=== PATIENT | male | born 1955 | race Caucasian/White ===

== ENCOUNTER → 2017-02-13 | Outpatient (CLI) | payer OTHER ==
[~2017-02-13] MED LIST: FAMO40TA39 PO; METH4TAB PO; SULF1TAB38 PO
[2017-02-13 20:18] LABS: BASOPHILS % (AUTO) 0 % (0-10); EOSINOPHILS # (AUTO) 0.4 10^3/uL (0.0-0.3); EOSINOPHILS % (AUTO) 3 % (0-10); LYMPHOCYTES % (AUTO) 27 % (12-44); MEAN CORPUSCULAR HEMOGLOBIN 30 PG (25-34); MEAN CORPUSCULAR HGB CONC 34 G/DL (32-36); MEAN CORPUSCULAR VOLUME 87 FL (80-99); MEAN PLATELET VOLUME 10.4 FL (7.4-10.4); MONOCYTES # (AUTO) 0.8 X 10^3 (0.0-1.0); MONOCYTES % (AUTO) 7 % (0-12); NEUTROPHILS # (AUTO) 7.1 X 10^3 (1.8-7.8); NEUTROPHILS % (AUTO) 63 % (42-75); PLATELET COUNT 240 10^3/uL (130-400); RED BLOOD COUNT 5.73 10^6/uL (4.35-5.85); RED CELL DISTRIBUTION WIDTH 13.8 % (10.0-14.5); WHITE BLOOD COUNT 11.2 10^3/uL (4.3-11.0)
[2017-02-13 20:39] LABS: ALANINE AMINOTRANSFERASE 61 U/L (0-55); ALBUMIN 4.1 GM/DL (3.2-4.5); ANION GAP 11 MMOL/L (5-14); ASPARTATE AMINO TRANSFERASE 35 U/L (5-34); BILIRUBIN,TOTAL 0.8 MG/DL (0.1-1.0); BLOOD UREA NITROGEN 13 MG/DL (7-18); BUN/CREATININE RATIO 15; CALCIUM 8.8 MG/DL (8.5-10.1); CARBON DIOXIDE 22 MMOL/L (21-32); CHLORIDE 105 MMOL/L (98-107); CREATININE SERUM 0.87 MG/DL (0.60-1.30); GFR ESTIMATED > 60; GLUCOSE 113 MG/DL (70-105); POTASSIUM 3.8 MMOL/L (3.6-5.0); SODIUM 138 MMOL/L (135-145)
== END ==
LOC: LAB 20:00
PROVIDERS: ATTEND Nurse Practitioner Family
DX: R25.2 Cramp and spasm (principal)
CPT/HCPCS: 36415; 80053; 85025

== ENCOUNTER 2020-03-08 10:07 | Outpatient (RCR) | payer SELFPAY ==
[~2020-03-08 10:07] MED LIST changes: -CATHETER FLUSH 10 ML SYR IV PRN; -REGADENOSON 0.4 MG/5 ML SYR (LEXISCAN) IV ONE
[2020-03-08] MEDS ORDERED: REGADENOSON 0.4 MG/5 ML SYR (LEXISCAN) IV ONE (11:00)
== END 2020-06-06 | disposition home or self-care (01) ==
LOC: CARD 10:07
PROVIDERS: ATTEND Internal Medicine Interventional Cardiology
DX: I10 Essential (primary) hypertension (principal); F17.200 Nicotine dependence, unspecified, uncomplicated; R06.02 Shortness of breath; R00.8 Other abnormalities of heart beat
CPT/HCPCS: 93270

== ENCOUNTER → 2020-03-08 | Outpatient (CLI) | payer SELFPAY ==
[~2020-03-08] VITALS: Ht 187 cm; Wt 120.0 kg
[~2020-03-08] MED LIST changes: +CATHETER FLUSH 10 ML SYR IV PRN; +REGADENOSON 0.4 MG/5 ML SYR (LEXISCAN) IV ONE
[2020-03-08 11:40] VITALS: BP 151/76
--- NOTE | 2020-03-10 19:02 | Cardiology Stress Test Report ---
Stress Test Report Type of NM Stress Test: Test Type: LEXISCAN 0.4MG/5ML Date of Procedure/Referring: Date of Procedure: Mar 08, 2020 PCP Andrew Sprague MD Admitting Physician [place] Indications: shortness of breath Baseline Heart Rate: 52 Baseline Blood Pressure: Blood Pressure Systolic: 151 Blood Pressure Diastolic: 76 Baseline EKG: Baseline EKG: sinus rhythm Summary & Conclusion: Summary: The patient was brought to the stress lab after informed consent was taken. Stress test was performed according to the Lexiscan protocol. 0.4 mg of IV Lexiscan was given. Low-grade exercise was performed. Baseline EKG showed sinus rhythm at 52 BPM. Initial blood pressure was 151/76 mmHg. Maximum heart rate was 55 bpm and blood pressure 165/91 mmHg. Patient did not have any chest pain, arrhythmias or ST segment changes during the stress test. 10.95 mCi of Myoview were given for rest imaging and 31.3 mCi of Myoview given for stress imaging. Transient ischemic dilatation score 1.02, EF 48 percent. Normal wall motion. Normal myocardial perfusion imaging during rest and stress. Conclusion: Pharmacological stress test was negative for ischemia. Normal LV function with no wall motion abnormalities. Normal myocardial perfusion imaging during rest and stress. Andrew SPRAGUE MD Mar 10, 2020 19:02
== END ==
LOC: CARD 10:09
PROVIDERS: ATTEND Internal Medicine Interventional Cardiology
DX: I10 Essential (primary) hypertension (principal); I51.7 Cardiomegaly; R06.02 Shortness of breath; R00.8 Other abnormalities of heart beat; F17.200 Nicotine dependence, unspecified, uncomplicated
CPT/HCPCS: 78452; 93017; 93306; A9502

== ENCOUNTER 2021-08-03 15:02 | Emergency (ER) | payer OTHER ==
[~2021-08-03] VITALS: Ht 187.9 cm; Wt 117.5 kg
[2021-08-03 15:27] LABS: BASOPHILS # (AUTO) 0.1 10^3/uL (0.0-0.1); BASOPHILS % (AUTO) 0 % (0-10); EOSINOPHILS # (AUTO) 0.2 10^3/uL (0.0-0.3); EOSINOPHILS % (AUTO) 1 % (0-10); HEMATOCRIT 52 % (40-54); HEMOGLOBIN 17.4 g/dL (13.3-17.7); LYMPHOCYTES # (AUTO) 2.7 X 10^3 (1.0-4.0); LYMPHOCYTES % (AUTO) 20 % (12-44); MEAN CORPUSCULAR HEMOGLOBIN 30 pg (25-34); MEAN CORPUSCULAR HGB CONC 33 g/dL (32-36); MEAN CORPUSCULAR VOLUME 90 fL (80-99); MEAN PLATELET VOLUME 9.8 fL (9.0-12.2); MONOCYTES # (AUTO) 1.1 X 10^3 (0.0-1.0); MONOCYTES % (AUTO) 8 % (0-12); NEUTROPHILS # (AUTO) 9.3 X 10^3 (1.8-7.8); NEUTROPHILS % (AUTO) 70 % (42-75); PLATELET COUNT 233 10^3/uL (130-400); WHITE BLOOD COUNT 13.3 10^3/uL (4.3-11.0)
[2021-08-03 15:33] LABS: ALBUMIN 4.1 GM/DL (3.2-4.5); POTASSIUM 4.1 MMOL/L (3.6-5.0)
[2021-08-03 15:35] LABS: CALCIUM 9.5 MG/DL (8.5-10.1)
[2021-08-03 15:38] LABS: BILIRUBIN,TOTAL 0.7 MG/DL (0.1-1.0)
[2021-08-03 15:40] LABS: CREATININE SERUM 0.82 MG/DL (0.60-1.30)
--- NOTE | 2021-08-03 15:41 | ED Cough/URI ---
General Chief Complaint: Cough/Cold/Flu Symptoms Stated Complaint: SOB,LOW O2, FEVER,CONGESTION,COUGH, Nursing Triage Note: pt to room by wheelchair. pt states he came from the clinic today with low O2 saturations. pt states he tested negative for covid at the clinic today but had a positive home test yesterday. pt states he got cough, sob, fever symptoms starting thursday. pt states he does have a history of emphysema. pt O2 sat 98% on RA on arrival Source: patient Exam Limitations: no limitations (JANELLE DAUGHERTY MED STUDENT) History of Present Illness Date Seen by Provider: Aug 03, 2021 Time Seen by Provider: 15:20 Initial Comments This is a 66 YO male smoker with history of HTN and COPD who presents to the ED with worsening cough for the past 5 days. States he has been coughing up yellow sputum and developed shortness of breath 3 days ago as well. Has had subjective fever at home, as well as body aches, which has improved with Ibuprofen. He has smoked 1ppd for the past 50 years and says that he gets pneumonia and bronchitis from time to time and a Z-Pac usually helps. Takes Singulair daily and Proventil as needed. Has been using his Proventil more frequently over the past couple of days and feels that it improves his symptoms. Pt is UTD on COVID and flu vaccines. Took a home COVID test last night that he thinks was faintly positive, but when to [facility], where flu was negative. At [facility] today, O2 saturation was 92% on room air and 88% after ambulation, so staff recommended pt come to the ED for CXR and further evaluation. 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 Timing/Duration: getting worse Severity/Quality: productive cough Modifying Factors: Improves With Albuterol Inhaler Associated Symptoms: muscle aches, shortness of breath (JANELLE DAUGHERTY MED STUDENT) Allergies and Home Medications Allergies Coded Allergies: Penicillins (Verified Allergy, Unknown, 03/08/20) Patient Home Medication List Home Medication List Reviewed: Yes (MANSI LEE MD) Azithromycin (Azithromycin) 250 Mg Tablet, 250 MG PO DAILY Prescribed by: MANSI ROGERS on 08/03/211713 Famotidine (Pepcid) 40 Mg Tablet, 40 MG PO BID Prescribed by: SALUD COOK on 08/01/13 012 Methylprednisolone (Medrol Dose Pack) 4 Mg/Dose-Pack Tab.ds.pk, 0 PO UD Prescribed by: SALUD COOK on 08/01/13 012 Methylprednisolone (Methylprednisolone Dose Pack) 4 Mg Tab.ds.pk, 4 MG PO UD Prescribed by: MANSI ROGERS on 08/03/21 1714 Review of Systems Review of Systems Constitutional: No chills, No dizziness EENTM: No blurred vision, No double vision Respiratory: cough, phlegm, short of breath Cardiovascular: No chest pain, No edema Gastrointestinal: No abdominal pain, No nausea, No vomiting Genitourinary: no symptoms reported Musculoskeletal: see HPI; No joint swelling; muscle pain Skin: No pruritus, No rash Psychiatric/Neurological: Denies Numbness, Denies Paresthesia Hematologic/Lymphatic: No Symptoms Reported Immunological/Allergic: no symptoms reported (JANELLE DAUGHERTY) All Other Systems Reviewed Negative Unless Noted: Yes (Negative excepted noted.) (JANELLE DAUGHERTY) Past Cuukkfg-Kgvdea-Yrblcg Hx Patient Social History Tobacco Use?: Yes Tobacco type used: Cigarettes Smoking Status: Current Everyday Smoker Substance use?: No Alcohol Use?: Yes Alcohol Frequency: Once in a while Pt feels they are or have been: No (JANELLE DAUGHERTY) Immunizations Up To Date Tetanus Booster (TDap): Less than 5yrs Influenza Vaccine Up-to-Date: Yes; Up-to-Date (JANELLE DAUGHERTY) Past Medical History Chronic Bronchitis, COPD, Emphysema Reproductive Disorders: No Sexually Transmitted Disease: No HIV/AIDS: No Amputee Hearing Impairment: Hard of Hearing Adverse Reaction/Blood Tranf: No (JANELLE DAUGHERTY) Respiratory: Yes Pneumonia, COPD (MANSI LEE MD) Physical Exam Vital Signs - First Documented 08/03/21 15:06 Temp 35.9 Pulse 67 Resp 17 B/P (MAP) 132/82 (99) Pulse Ox 98 (MANSI LEE MD) Capillary Refill : (JANELLE DAUGHERTY) Height: 6'2" Weight: 250lbs. oz. 113.515735lt; 33.00 BMI Method:Stated General Appearance: WD/WN, no apparent distress Eyes: Bilateral Eye Normal Inspection, Bilateral Eye PERRL, Bilateral Eye EOMI HEENT: PERRL/EOMI; No scleral icterus (R), No scleral icterus (L) Neck: full range of motion, normal inspection Respiratory: other (mild respiratory distress; mild diffuse crackles and expiratory wheezing) Cardiovascular: regular rate, rhythm, no murmur Gastrointestinal: non tender, soft; No distended, No guarding, No rebound; other (obese abdomen) Extremities: normal range of motion, no calf tenderness Neurologic/Psychiatric: no motor/sensory deficits, alert, normal mood/affect, oriented x 3 Skin: normal color, warm/dry, other (clubbing of fingers) (JANELLE DAUGHERTY MED STUDENT) Progress/Results/Core Measures Suspected Sepsis SIRS Temperature: Pulse: 67 Respiratory Rate: 17 Laboratory Tests 08/03/21 15:19: White Blood Count 13.3H Blood Pressure 132 /82 Mean: 99 Laboratory Tests 08/03/21 15:19: Creatinine 0.82, Platelet Count 233, Total Bilirubin 0.7 (JANELLE DAUGHERTY MED STUDENT) Results/Orders Lab Results Laboratory Tests Test 08/03/21 15:14 08/03/21 15:19 Range/Units Influenza Type A (RT-PCR) Not Detected Not Detecte Influenza Type B (RT-PCR) Not Detected Not Detecte SARS-CoV-2 RNA (RT-PCR) Not Detected Not Detecte White Blood Count 13.3 H 4.3-11.0 10^3/uL Red Blood Count 5.84 H 4.30-5.52 10^6/uL Hemoglobin 17.4 13.3-17.7 g/dL Hematocrit 52 40-54 % Mean Corpuscular Volume 90 80-99 fL Mean Corpuscular Hemoglobin 30 25-34 pg Mean Corpuscular Hemoglobin Concent 33 32-36 g/dL Red Cell Distribution Width 13.7 10.0-14.5 % Platelet Count 233 130-400 10^3/uL Mean Platelet Volume 9.8 9.0-12.2 fL Immature Granulocyte % (Auto) 0 % Neutrophils (%) (Auto) 70 42-75 % Lymphocytes (%) (Auto) 20 12-44 % Monocytes (%) (Auto) 8 0-12 % Eosinophils (%) (Auto) 1 0-10 % Basophils (%) (Auto) 0 0-10 % Neutrophils # (Auto) 9.3 H 1.8-7.8 X 10^3 Lymphocytes # (Auto) 2.7 1.0-4.0 X 10^3 Monocytes # (Auto) 1.1 H 0.0-1.0 X 10^3 Eosinophils # (Auto) 0.2 0.0-0.3 10^3/uL Basophils # (Auto) 0.1 0.0-0.1 10^3/uL Immature Granulocyte # (Auto) 0.0 0.0-0.1 10^3/uL Sodium Level 137 135-145 MMOL/L Potassium Level 4.1 3.6-5.0 MMOL/L Chloride Level 101 98-107 MMOL/L Carbon Dioxide Level 24 21-32 MMOL/L Anion Gap 12 5-14 MMOL/L Blood Urea Nitrogen 10 7-18 MG/DL Creatinine 0.82 0.60-1.30 MG/DL Estimat Glomerular Filtration Rate 98 BUN/Creatinine Ratio 12 Glucose Level 100 70-105 MG/DL Calcium Level 9.5 8.5-10.1 MG/DL Corrected Calcium 9.4 8.5-10.1 MG/DL Total Bilirubin 0.7 0.1-1.0 MG/DL Aspartate Amino Transf (AST/SGOT) 15 5-34 U/L Alanine Aminotransferase (ALT/SGPT) 31 0-55 U/L Alkaline Phosphatase 77 40-136 U/L C-Reactive Protein High Sensitivity 6.38 H 0.00-0.50 MG/DL B-Type Natriuretic Peptide 60.9 <100.0 PG/ML Total Protein 7.0 6.4-8.2 GM/DL Albumin 4.1 3.2-4.5 GM/DL (MANSI LEE MD) My Orders Orders - MANSI LEE MD Covid 19 Inhouse Test (08/03/21 15:07) Influenza A And B By Pcr (08/03/21 15:07) Cbc With Automated Diff (08/03/21 15:08) Comprehensive Metabolic Panel (08/03/21 15:08) Hs C Reactive Protein (08/03/21 15:08) Ed Iv/Invasive Line Start (08/03/21 15:08) Bnp Malik (08/03/21 15:11) Chest Pa/Lat (2 View) (08/03/21 16:25) Azithromycin Tablet (Zithromax Tablet) (08/03/21 17:15) Prednisone Tablet (Deltasone Tablet) (08/03/21 17:15) (MANSI LEE MD) Vital Signs/I&O 08/03/21 08/03/21 15:06 17:38 Temp 35.9 Pulse 67 64 Resp 17 21 B/P (MAP) 132/82 (99) 130/78 Pulse Ox 98 95 (MANSI LEE MD) Vital Signs/I&O Capillary Refill : (JANELLE DAUGHERTY MED STUDENT) Blood Pressure Mean: 99 Progress Note : Progress Note Work-up revealed evidence of pneumonia on the chest x-ray. Influenza and Covid screens were negative. Patient was wheezing on exam but not in distress. Oxyg en saturation stayed in the upper 90s on room air. Patient was prescribed antibiotics and steroids for pneumonia and COPD exacerbation. See discharge instructions for further discussion. (MANSI LEE MD) Diagnostic Imaging Diagonstic Imaging: Xray Plain Films/CT/US/NM/MRI: chest Comments Chest x-ray viewed by me and report reviewed. See report below: NAME: FANNIE EMERSON [facility] REC#: [id number] PT STATUS: REG ER : 1955 PHYSICIAN: MANSI LEE MD ADMIT DATE: 08/03/21/ER Signed Date of Exam:08/03/21 CHEST PA/LAT (2 VIEW) INDICATION: Low oxygen saturation. TIME OF EXAM: 4:47 PM. COMPARISON: No prior studies are available for comparison. Heart size is normal. There are diffuse bilateral interstitial infiltrates. There is no effusion or pneumothorax. IMPRESSION: Diffuse bilateral pulmonary infiltrates suggestive of pneumonia. Dictated by: Dictated on workstation # [id number] Dict: 08/03/211648 Trans: 08/03/211654 [facility] [id number] Interpreted by: OZ MARK MD Electronically signed by: OZ MARK MD 08/03/211654 (MANSI LEE MD) Departure Impression Primary Impression: Bilateral pneumonia Qualified Codes: J18.9 - Pneumonia, unspecified organism Additional Impression: COPD exacerbation Disposition: 01 HOME, SELF-CARE Condition: Stable Departure-Patient Inst. Decision time for Depature: 17:12 (MANSI LEE MD) Referrals: [facility] (PCP) Primary Care Physician CHINTAN FREIRE APRN (Family) Primary Care Physician Patient Instructions: COPD Exacerbation, Adult ED, Community-Acquired Pneumonia in Adults Add. Discharge Instructions: Complete your antibiotic as prescribed. Take your first dose tomorrow afternoon. Complete the steroid taper as prescribed. Take your next dose tomorrow morning. Take steroids early in the day and with food or milk. This helps prevent sleep disturbance or stomach upset. Decrease your smoking and work toward quitting as rapidly as possible. Use your inhaler as previously prescribed for wheezing and shortness of breath. Call with questions or concerns. Return to the ER if you have worsening symptoms despite following these instructions. All discharge instructions reviewed with patient and/or family. Voiced understanding. Scripts Methylprednisolone (Methylprednisolone Dose Pack) 4 Mg Tab.ds.pk 4 MG PO UD for 6 Days, #21 PKG PER DOSE PACK INSTRUCTIONS Prov: MANSI LEE MD 08/03/21 Azithromycin (Azithromycin) 250 Mg Tablet 250 MG PO DAILY, #4 TAB 0 Refills Prov: MANSI LEE MD 08/03/21 Medical Student Attestation and Attending Note: I have personally interviewed and examined this patient along with Lida Oconnell, MS 4. I have reviewed student documentation including history, physical, and assessments. I agree with the documentation except where otherwise noted. Exam: General: Alert, oriented, no acute distress, well developed HEENT: Normocephalic and atraumatic Heart: Normal rate and regular rhythm without murmur Lungs: Wheezing throughout, with normal effort Abdomen: Soft, nontender, nondistended, normal bowel sounds Extremities: No edema, nontender Neuropsych: Alert, oriented, no focal deficits Skin: Warm and dry without rashes (MANSI LEE MD) Copy Copies To 1: LOREE CASTANEDA CHRISTINE MED STUDENT Aug 03, 2021 15:40 MANSI LEE MD Aug 03, 2021 17:15
--- NOTE | 2021-08-03 16:51 | Diagnostic Imaging Report ---
INDICATION: Low oxygen saturation. TIME OF EXAM: 4:47 PM. COMPARISON: No prior studies are available for comparison. Heart size is normal. There are diffuse bilateral interstitial infiltrates. There is no effusion or pneumothorax. IMPRESSION: Diffuse bilateral pulmonary infiltrates suggestive of pneumonia. Dictated by: Dictated on workstation # [id number]
[2021-08-03] MEDS ORDERED: METH4TAB10 PO (17:14)
[2021-08-03] MEDS ORDERED: AZIT250T12 PO (17:14)
[2021-08-03] MEDS ORDERED: predniSONE 20 MG TAB PO ONE (17:15)
[2021-08-03] MEDS ORDERED: AZITHROMYCIN 250 MG TAB (ZITHROMAX) PO ONE (17:15)
[2021-08-03 17:38] VITALS: BP 130/78
== END 2021-08-03 17:38 | disposition home or self-care (01) ==
LOC: EDUNIT# 15:02 → ER 15:05
DX: J18.9 Pneumonia, unspecified organism (principal); J44.1 Chronic obstructive pulmonary disease with (acute) exacerbation; F17.210 Nicotine dependence, cigarettes, uncomplicated; Z20.822 Contact with and (suspected) exposure to COVID-19
CPT/HCPCS: 36415; 71046; 80053; 83880; 85025; 86141; 87636

== ENCOUNTER 2023-04-26 19:22 | Inpatient (IN) | payer BC, MEDICARE ==
[2023-04-25 23:00] VITALS: BP 136/75
[~2023-04-26] VITALS: Ht 188 cm; Wt 115.3 kg
[~2023-04-26 19:22] MED LIST changes: +AZIT250T12 PO; +METH4TAB10 PO
--- NOTE | 2023-04-26 19:53 | ED Abdominal Pain ---
General Chief Complaint: Abdominal/GI Problems Stated Complaint: GI DISTRESS Source of Information: Patient, Family () Exam Limitations: No Limitations History of Present Illness Date Seen by Provider: Apr 26, 2023 Time Seen by Provider: 19:40 Initial Comments Patient is a 67-year-old male who presents to the emergency room with a chief complaint of mid and bilateral lower abdominal pain onset yesterday. He states that moving around and walking make the pain worse. He has had 2 episodes of vomiting, one yesterday and one today. He states he had a fairly normal bowel movement this morning but it was black. He has been taking some Pepto for the stomachache. He has been trying to drink but has felt worse with trying to eat and drink. He has had prior right inguinal hernia repair. Has known periumbilical hernia that is very small and never gives him trouble. He denies blood in his emesis/coffee-ground emesis. No blood in his stool. He has never had any true abdominal surgeries, has never had a colonoscopy. Is a smoker, quit about a month ago. Has a history of A-fib anticoagulated on Eliquis. Hypertension. reports fairly significant sleep apnea. Currently rates his pain about a "4". Was given Zofran at [facility] prior to transfer to the emergency department. Timing/Duration: 1-2 Days Severity/Quality: Severe (comes in "waves"), Cramping Location: RLQ Radiation: Other (across lower abdomen) Associated Symptoms: Fever/Chills (chills without fever), Nausea/Vomiting (x2) Allergies and Home Medications Allergies Coded Allergies: Penicillins (Verified Allergy, Unknown, 03/08/20) Patient Home Medication List Home Medication List Reviewed: Yes Azithromycin (Azithromycin) 250 Mg Tablet, 250 MG PO DAILY Prescribed by: MANSI ROGERS on 08/03/211713 Famotidine (Pepcid) 40 Mg Tablet, 40 MG PO BID Prescribed by: SALUD COOK on 08/01/13125 Methylprednisolone (Medrol Dose Pack) 4 Mg/Dose-Pack Tab.ds.pk, 0 PO UD Prescribed by: SALUD COOK on 08/01/13125 Methylprednisolone (Methylprednisolone Dose Pack) 4 Mg Tab.ds.pk, 4 MG PO UD Prescribed by: MANSI ROGERS on 3/12/22 1714 Review of Systems Review of Systems Constitutional: see HPI EENTM: No Symptoms Reported Respiratory: No Symptoms Reported Cardiovascular: No Symptoms Reported Gastrointestinal: Abdominal Pain, Nausea, Vomiting, Other ("black stool" - (taking pepto)) Genitourinary: No Symptoms Reported Musculoskeletal: no symptoms reported Skin: no symptoms reported Past Gdkmflk-Qhuebm-Arxono Hx Patient Social History Tobacco Use?: Yes Smoking Status: Former Smoker Use of E-Cig and/or Vaping dev: No Substance use?: No Alcohol Use?: No Immunizations Up To Date Tetanus Booster (TDap): Less than 5yrs Past Medical History Surgery/Hospitalization HX: COPD Respiratory: Yes Pneumonia, COPD Reproductive Disorders: No Sexually Transmitted Disease: No HIV/AIDS: No Amputee Hearing Impairment: Hard of Hearing Adverse Reaction/Blood Tranf: No Physical Exam Vital Signs Vital Signs - First Documented 04/26/23 19:30 Temp 36.6 Pulse 71 Resp 18 B/P (MAP) 135/78 (97) Pulse Ox 93 O2 Delivery Room Air Capillary Refill : Height/Weight/BMI Height: 6'2" Weight: 250lbs. oz. 113.578988hv; 33.00 BMI Method:Stated General Appearance: WD/WN, no apparent distress, obese HEENT: PERRL/EOMI Neck: normal inspection Respiratory: lungs clear, normal breath sounds, no respiratory distress, no accessory muscle use Cardiovascular: regular rate, rhythm, extra beats Gastrointestinal: soft, abnormal bowel sounds (hypoactive); No distended, No guarding, No rebound; tenderness, other (pos Rovsing's) Extremities: normal range of motion, normal inspection, no pedal edema Neurologic/Psychiatric: no motor/sensory deficits, alert, normal mood/affect, oriented x 3 Skin: normal color, warm/dry Progress/Results/Core Measures Results/Orders Lab Results Laboratory Tests Test 04/26/23 16:17 Range/Units White Blood Count 16.8 H 4.3-11.0 10^3/uL Red Blood Count 6.24 H 4.30-5.52 10^6/uL Hemoglobin 18.9 H 13.3-17.7 g/dL Hematocrit 56 H 40-54 % Mean Corpuscular Volume 90 80-99 fL Mean Corpuscular Hemoglobin 30 25-34 pg Mean Corpuscular Hemoglobin Concent 34 32-36 g/dL Red Cell Distribution Width 13.6 10.0-14.5 % Platelet Count 222 130-400 10^3/uL Mean Platelet Volume 10.4 9.0-12.2 fL Immature Granulocyte % (Auto) 0 % Neutrophils (%) (Auto) 83 H 42-75 % Lymphocytes (%) (Auto) 9 L 12-44 % Monocytes (%) (Auto) 7 0-12 % Eosinophils (%) (Auto) 0 0-10 % Basophils (%) (Auto) 0 0-10 % Neutrophils # (Auto) 14.0 H 1.8-7.8 10^3/uL Lymphocytes # (Auto) 1.5 1.0-4.0 10^3/uL Monocytes # (Auto) 1.2 H 0.0-1.0 10^3/uL Eosinophils # (Auto) 0.1 0.0-0.3 10^3/uL Basophils # (Auto) 0.0 0.0-0.1 10^3/uL Immature Granulocyte # (Auto) 0.1 0.0-0.1 10^3/uL Sodium Level 137 135-145 MMOL/L Potassium Level 4.3 3.6-5.0 MMOL/L Chloride Level 99 98-107 MMOL/L Carbon Dioxide Level 25 21-32 MMOL/L Anion Gap 13 5-14 MMOL/L Blood Urea Nitrogen 10 7-18 MG/DL Creatinine 1.09 0.60-1.30 MG/DL Estimat Glomerular Filtration Rate 75 BUN/Creatinine Ratio 9 Glucose Level 133 H 70-105 MG/DL Calcium Level 9.8 8.5-10.1 MG/DL Corrected Calcium 8.5-10.1 MG/DL Total Bilirubin 1.3 H 0.1-1.0 MG/DL Aspartate Amino Transf (AST/SGOT) 21 5-34 U/L Alanine Aminotransferase (ALT/SGPT) 45 0-55 U/L Alkaline Phosphatase 68 40-136 U/L Total Protein 7.8 6.4-8.2 GM/DL Albumin 4.6 H 3.2-4.5 GM/DL My Orders Orders - DANILO PRIEST MD Ed Iv/Invasive Line Start (04/26/23 19:51) Cbc And Automated Diff (04/26/23 19:51) Comprehensive Metabolic Panel (04/26/23 19:51) Ns Iv 1000 Ml (Ns Iv 1000 Ml) (04/26/23 20:00) Ct Abdomen/Pelvis W (04/26/23 20:40) Iohexol Injection (Omnipaque 350 Mg/Ml 1 (04/26/23 20:45) Received Contrast (Hold Metformin- Contr (04/26/23 20:45) Ns (Ivpb) 100 Ml (Sodium Chloride 0.9% 1 (04/26/23 20:45) Ciprofloxacin Iv 400mg/200ml (Ciprofloxa (04/26/23 21:30) Metronidazole 500mg/100ml Ivpb (Metronid (04/26/23 21:30) Medications Given in ED Current Medications Medications Dose Ordered Sig/Elsa Route Start Time Stop Time Status Last Admin Dose Admin Iohexol 100 ml ONCE ONCE IV 04/26/23 20:45 04/26/23 20:46 DC 04/26/23 21:04 100 ML Sodium Chloride 100 ml ONCE ONCE IV 04/26/23 20:45 04/26/23 20:46 DC 04/26/23 21:05 80 ML Vital Signs/I&O 04/26/23 19:30 Temp 36.6 Pulse 71 Resp 18 B/P (MAP) 135/78 (97) Pulse Ox 93 O2 Delivery Room Air Progress Progress Note : Time: 21:32 Progress Note Patient seen and evaluated by me. Evaluation today includes history and physical exam with CBC, CMP, CT scan of the abdomen and pelvis with IV contrast. Pertinent physical exam findings well-developed well-nourished obese male no significant distress. He appears fairly well-hydrated. Heart is regular with occasional ectopic beat, lungs are clear to auscultation bilaterally. Abdomen it is fairly protuberant with very hypoactive bowel sounds. He is tender in the right lower quadrant quadrant without significant rebound or involuntary guarding. Positive Rovsing's, mild. He has no lower extremity edema. He is awake, alert, mentating appropriately. Differential diagnosis includes acute appendicitis, colitis Labs independently reviewed and interpreted by me. CBC shows a white blood cell count of 16.8 with 83% segmented neutrophils. His hemoglobin is elevated at 18.9 hematocrit of 56 likely reflective of ongoing tobacco use. His platelets are 222. His comprehensive metabolic panel is grossly normal except for a very minimally elevated glucose at 133. Total bili is 1.3. Normal renal function, normal liver function. CT scan of the abdomen and pelvis with IV contrast reviewed by me shows what looks like mesenteric stranding and inflammation in the right lower quadrant adjacent to where the appendix would be, suspect acute appendicitis. Radiologist read is pending. I discussed the case with Dr. Wilkes on for general surgery who concurs that he thinks this is acute appendicitis. The patient is penicillin allergic, will administer Flagyl and Cipro. Patient is reevaluated at this time and says that his pain is actually fairly well controlled. He thinks the Zofran is what helped his pain. I confirmed that he has only taken his morning Eliquis dose today. Advised him we would hold it until Thursday when Dr. Wilkes thinks that he would be a better surgical candidate. Will involve Dr. Valentin in the morning for medicine consult. Patient and his are agreeable with the plan of care. All questions are sought and answered. Patient will be admitted to the medical floor. Diagnostic Imaging Diagonstic Imaging: CT Comments CT abdomen and pelvis independently reviewed by gustavo to have mesenteric stranding, inflammatory changes in the right lower quadrant adjacent to where the appendix would be [facility]. [place], [place] NAME: FANNIE EMERSON [facility] REC#: [id number] PT STATUS: REG ER : 1955 PHYSICIAN: DANILO PRIEST MD ADMIT DATE: 04/26/23/ER Draft Date of Exam:04/26/23 CT ABDOMEN/PELVIS W PROCEDURE: CT abdomen and pelvis with contrast. TECHNIQUE: Multiple contiguous axial images were obtained through the abdomen and pelvis after administration of intravenous contrast. Auto Exposure Controls were utilized during the CT exam to meet ALARA standards for radiation dose reduction. All CT scans use one or more of the following dose optimizing techniques: automated exposure control, MA and/or KvP adjustment based on patient size and exam type or iterative reconstruction. INDICATION: 67-year-old male, right lower quadrant abdominal pain, nausea and vomiting. CORRELATION STUDY: None. FINDINGS: LOWER THORAX: Advanced fibrotic-type change about the lung bases. A few small nodules in both lung sun measuring 5 mm or smaller. No basilar infiltrate. Small esophageal hernia. LIVER: Mild fatty infiltration. A few calcified granulomas. No focal lesion. GALLBLADDER: Present and unremarkable. No bile duct dilatation. SPLEEN: Multiple calcified granulomas, normal in size. PANCREAS: Unremarkable. ADRENAL GLANDS: Unremarkable. KIDNEYS: Small exophytic left renal cyst. No calcification or obstruction. ABDOMINAL AORTA: Mild wall desiccation, nonaneurysmal. GASTROINTESTINAL TRACT: Mildly prominent 9 mm with prominent periappendiceal and pericecal inflammatory change consistent with acute appendicitis. No abscess or extraluminal gas. Mild to moderate stool in the colon. A few gas-filled loops of small bowel in the lower abdomen may be reflective of mild reactive ileus. URINARY BLADDER: Unremarkable. REPRODUCTIVE: Prostate gland within normal limits for the patient's age. OSSEOUS STRUCTURES: Mild rightward curvature of the lumbar spine with mildly advanced degenerative change. IMPRESSION: 1. Inflammatory change in right lower quadrant, essentially at the appendix, compatible with acute appendicitis. No evidence for perforation or drainable abscess collection. May be mild associated reactive terminal ileitis and ileus bowel gas pattern. Report was faxed to the [facility] at 9:27 p.m., by rojelio. Dictated on workstation # [id number] Dict: 04/26/232116 Trans: 04/26/232127 ROJELIO [id number] Interpreted by: MARGOT SIDDIQUI DO Electronically signed by: Departure Communication (Admissions) Time/Spoke to Admitting Phy: 21:[address] Wilkes (general surgery) Impression Primary Impression: Acute appendicitis Qualified Codes: K35.30 - Acute appendicitis with localized peritonitis, without perforation or gangrene Disposition: ADMITTED INPATIENT Condition: Stable Admissions Decision to Admit Reason: Admit from ER (General) Decision to Admit/Date: Apr 26, 2023 Time/Decision to Admit Time: 21:37 Departure-Patient Inst. Referrals: [facility] (PCP) Primary Care Physician CHINTAN FREIRE APRN (Family) Primary Care Physician Copy Copies To 1: LOREE CASTANEDA DO Copies To 2: WASHINGTON WILKES KATHRYN M MD Apr 26, 2023 19:53
[2023-04-26 19:58] LABS: BASOPHILS % (AUTO) 0 % (0-10); EOSINOPHILS # (AUTO) 0.1 10^3/uL (0.0-0.3); EOSINOPHILS % (AUTO) 0 % (0-10); HEMATOCRIT 56 % (40-54); HEMOGLOBIN 18.9 g/dL (13.3-17.7); LYMPHOCYTES # (AUTO) 1.5 10^3/uL (1.0-4.0); LYMPHOCYTES % (AUTO) 9 % (12-44); MEAN CORPUSCULAR HEMOGLOBIN 30 pg (25-34); MEAN CORPUSCULAR HGB CONC 34 g/dL (32-36); MEAN CORPUSCULAR VOLUME 90 fL (80-99); MEAN PLATELET VOLUME 10.4 fL (9.0-12.2); MONOCYTES # (AUTO) 1.2 10^3/uL (0.0-1.0); MONOCYTES % (AUTO) 7 % (0-12); NEUTROPHILS % (AUTO) 83 % (42-75); PLATELET COUNT 222 10^3/uL (130-400); WHITE BLOOD COUNT 16.8 10^3/uL (4.3-11.0)
[2023-04-26] MEDS: NS IV 1000 ML 1,000 ML IV SCH ×3 (19:58→23:15)
[2023-04-26 20:12] LABS: ALANINE AMINOTRANSFERASE 45 U/L (0-55); ALBUMIN 4.6 GM/DL (3.2-4.5); ALKALINE PHOSPHATASE 68 U/L (40-136); BILIRUBIN,TOTAL 1.3 MG/DL (0.1-1.0); BUN/CREATININE RATIO 9; CALCIUM 9.8 MG/DL (8.5-10.1); CARBON DIOXIDE 25 MMOL/L (21-32); CHLORIDE 99 MMOL/L (98-107); CREATININE SERUM 1.09 MG/DL (0.60-1.30); GFR ESTIMATED 75; GLUCOSE 133 MG/DL (70-105); POTASSIUM 4.3 MMOL/L (3.6-5.0); SODIUM 137 MMOL/L (135-145); TOTAL PROTEIN 7.8 GM/DL (6.4-8.2)
[2023-04-26] MEDS ORDERED: HOLD METFORMIN - RECEIVED CONTRAST 20 ML VIAL IV SCH (20:45)
[2023-04-26] MEDS ORDERED: IOHEXOL 350 MG/ML 100 ML (OMNIPAQUE 350) VIAL IV ONE (20:45)
[2023-04-26] MEDS ORDERED: NS 100 ML (IVPB) BAG IV ONE (20:45)
[2023-04-26] MEDS ORDERED: CIPROFLOXACIN IV 400MG/200ML 200 ML IV ONE (21:30)
[2023-04-26] MEDS ORDERED: metroNIDAZOLE 500MG/100ML IVPB 100 ML IV ONE (21:30)
--- NOTE | 2023-04-26 21:30 | Diagnostic Imaging Report ---
PROCEDURE: CT abdomen and pelvis with contrast. TECHNIQUE: Multiple contiguous axial images were obtained through the abdomen and pelvis after administration of intravenous contrast. Auto Exposure Controls were utilized during the CT exam to meet ALARA standards for radiation dose reduction. All CT scans use one or more of the following dose optimizing techniques: automated exposure control, MA and/or KvP adjustment based on patient size and exam type or iterative reconstruction. INDICATION: 67-year-old male, right lower quadrant abdominal pain, nausea and vomiting. CORRELATION STUDY: None. FINDINGS: LOWER THORAX: Advanced fibrotic-type change about the lung bases. A few small nodules in both lung sun measuring 5 mm or smaller. No basilar infiltrate. Small esophageal hernia. LIVER: Mild fatty infiltration. A few calcified granulomas. No focal lesion. GALLBLADDER: Present and unremarkable. No bile duct dilatation. SPLEEN: Multiple calcified granulomas, normal in size. PANCREAS: Unremarkable. ADRENAL GLANDS: Unremarkable. KIDNEYS: Small exophytic left renal cyst. No calcification or obstruction. ABDOMINAL AORTA: Mild wall desiccation, nonaneurysmal. GASTROINTESTINAL TRACT: Mildly prominent 9 mm with prominent periappendiceal and pericecal inflammatory change consistent with acute appendicitis. No abscess or extraluminal gas. Mild to moderate stool in the colon. A few gas-filled loops of small bowel in the lower abdomen may be reflective of mild reactive ileus. URINARY BLADDER: Unremarkable. REPRODUCTIVE: Prostate gland within normal limits for the patient's age. OSSEOUS STRUCTURES: Mild rightward curvature of the lumbar spine with mildly advanced degenerative change. IMPRESSION: 1. Inflammatory change in right lower quadrant, essentially at the appendix, compatible with acute appendicitis. No evidence for perforation or drainable abscess collection. May be mild associated reactive terminal ileitis and ileus bowel gas pattern. Report was faxed to the [facility] at 9:27 p.m., by luz. Dictated by: Dictated on workstation # [id number]
[2023-04-26 23:00] VITALS: BP 144/68
[2023-04-26] MEDS ORDERED: TAMSULOSIN 0.4 MG (FLOMAX) CAP PO ONE (23:21)
[2023-04-26] MEDS: TAMSULOSIN 0.4 MG (FLOMAX) CAP PO SCH (23:22)
[2023-04-26] MEDS ORDERED: ONDANSETRON INJECTION 4 MG/2 ML (SDV) IV PRN (23:30)
[2023-04-27 03:00] VITALS: BP 126/70
[2023-04-27] MEDS: metroNIDAZOLE 500 MG/100 ML IVPB (PRE-MIX) IV SCH ×3 (05:36→21:09)
[2023-04-27] MEDS ORDERED: FLU HIGH DOSE (65+ YOA) 240 MCG/0.7 ML 2023-24 (FLUZONE) IM ONE (07:00)
--- NOTE | 2023-04-27 07:03 | Consultation - Surgery ---
TATIANA ANN 04/27/23 0703: History of Present Illness History of Present Illness Patient Consulted On(delmi/time) 04/27/23 06:56 Date Seen by Provider: Apr 27, 2023 History of Present Illness Rommel, 67M, came to the ED due to stomach pain, present for 2 days, RLQ, present across stomach midline. Pain is described a constant dull, sharp on palpation, worse with movement. Pt denies issues like this prior. Pt endorses N/V, vomit yesterday was foamy and clear. He notes that the vomit became yellow yesterday. He says that there is "not a lot" and estimated it to be a few oz. Rommel also notes some decreased appetite, noting some weight loss over the past few weeks. As far as BM he notes he struggled two days ago with constipation. He then notes there was diarrhea once. He also notes that he last pooped yesterday at 11am, stating it was black, noting he was taking pepto bismol. Rommel denies any obvious blood in toilet on in stool. He also notes that sometimes wiping causes BRBPR. Rommel confirms that he last took eliquis 04/26 at 11am for his AFib. He notes he has a umbilical hernia, but has not had an operation on it. He notes his sleep was poor last night due to IV discomfort. Rommel notes that his pain has improved since presenting to hospital, but it is still present. No other concerns. He notes his last meal was last night, he has been drinking sprite this morning. Allergies and Home Medications Allergies Coded Allergies: Penicillins (Verified Allergy, Unknown, 03/08/20) Uncoded Allergies: chicken (Adverse Reaction, Intermediate, Hives, 04/27/23) and diarrhea Patient Home Medication List Albuterol Sulfate (Ventolin Hfa) 90 Mcg Hfa.aer.ad, 1 PUFF PO Q6H PRN for SHORTNESS OF BREATH, (Reported) Entered as Reported by: KAYLEY NIÑO on 04/27/23 1013 Last Action: Reviewed Apixaban (Eliquis) 5 Mg Tablet, 5 MG PO BID, (Reported) Entered as Reported by: KAYLEY NIÑO on 04/27/23 1008 Last Action: Held Calcium Carb/Magnesium Oxid/D3 (Calcium Magnesium + D Tablet) 400 Mg-167 Mg-133 Unit Tablet, 1 EACH PO BID, (Reported) Entered as Reported by: KAYLEY NIÑO on 04/27/23 1014 Last Action: Converted Cetirizine HCl (Cetirizine HCl) 10 Mg Tablet, 10 MG PO DAILY, (Reported) Entered as Reported by: KAYLEY NIÑO on 04/27/23 100 Last Action: Reviewed Cyanocobalamin (Vitamin B-12) (Vitamin B-12) 1,000 Mcg Tablet, 1,000 MCG PO DAILY, (Reported) Entered as Reported by: KAYLEY NIÑO on 04/27/23 101 Last Action: Continued Fluticasone Propionate (Fluticasone Propionate) 50 Mcg/Actuation [place].susp, 1 SPRAY NSEACH DAILY, (Reported) Entered as Reported by: KAYLEY NIÑO on 04/27/231007 Last Action: Continued Glucosamine/D3/Boswellia Aishwarya (Osteo Bi-Flex Tablet) 1,500 Mg-400 Unit-100 Mg Tablet, 1 EACH PO DAILY, (Reported) Entered as Reported by: KAYLEY NIÑO on 04/27/23 1013 Last Action: Held Lisinopril (Lisinopril) 20 Mg Tablet, 20 MG PO BID, (Reported) Entered as Reported by: KAYLEY NIÑO on 04/27/231007 Last Action: Reviewed Montelukast Sodium (Montelukast Sodium) 10 Mg Tablet, 10 MG PO DAILY, (Reported) Entered as Reported by: KAYLEY NIÑO on 04/27/231007 Last Action: Continued Multivitamin (Multivitamin) 1 Each Tablet, 1 EACH PO DAILY, (Reported) Entered as Reported by: KAYLEY NIÑO on 04/27/23 101 Last Action: Converted Ondansetron (Ondansetron Odt) 8 Mg Tab.rapdis, 8 MG PO Q8H PRN for NAUSEA/VOMITING, (Reported) Entered as Reported by: KAYLEY NIÑO on 04/27/23 100 Last Action: Held Potassium Citrate (Potassium) 99 Mg Capsule, 99 MG PO DAILY, (Reported) Entered as Reported by: KAYLEY NIÑO on 04/27/23 1015 Last Action: Converted Solifenacin Succinate (Solifenacin Succinate) 5 Mg Tablet, 5 MG PO HS, (Reported) Entered as Reported by: KAYLEY NIÑO on 04/27/23 1009 Last Action: Converted Tamsulosin HCl (Flomax) 0.4 Mg Cap, 0.4 MG PO HS, (Reported) Entered as Reported by: KAYLEY NIÑO on 04/27/23 100 Last Action: Reviewed Past Gfmvrah-Huchda-Pmltkj Hx Patient Social History Smoking Status: Former Smoker (50 years, 1-2 packs per year, quit 1 month ago ) Type Used: Cigarettes Recent Hopitalizations: No Alcohol Use?: Yes (somteimes, few shots of whiskey, ) Immunizations Up To Date Tetanus Booster (TDap): Less than 5yrs Surgeries History of Surgeries: Yes Surgeries: Abdominal (inguinal hernia, ), Bladder Surgery ("stretched", as a child, unsure) Respiratory History of Respiratory Disorde: Yes Respiratory Disorders: Asthma, Pneumonia, Sleep Apnea (denies using CPAP machine ), COPD Cardiovascular History of Cardiac Disorders: Yes Cardiac Disorders: Atrial Fibrillation (started 3 years ago, Dr. 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, distal ), Chronic Back Pain (heavy machine work) Endocrine History of Endocrine Disorders: No HEENT History of HEENT Disorders: Yes HEENT Disorders: Cataract (few years ago, ) Hearing Impairment: Hard of Hearing Cancer History of Cancer: No Psychosocial History of Psychiatric Problem: No Integumentary History of Skin or Integumenta: No Blood Transfusions History of Blood Disorders: No Adverse Reaction to a Blood Tr: No Family Medical History Significant Family History: Heart Disease (mother ), Cancer (Father (colon) ), COPD (father ), Diabetes (daughter ), Lung Disease (uncle ), Stroke (brother ), Other Conditions/Hx (scleroderma in mother ) Review of Systems-General Constitutional: No chills, No fever; weakness (diffuse ), weight loss (8 pounds over 2 weeks ) EENTM: No eye pain, No hoarseness Respiratory: cough; No hemoptysis; phlegm (clear and then yellow ), short of breath Cardiovascular: No chest pain, No palpitations Gastrointestinal: RUQ, abdominal pain, nausea, vomiting (1 episode at hospital, yellow, few oz ) Genitourinary: No dysuria; other (noted smell ) Musculoskeletal: No gout; joint pain (r shoulder ), muscle pain (R shoulder ) Skin: No dryness, No lumps Psychiatric/Neurological: Denies Headache, Denies Numbness Physical Exam-General Problems Physical Exam Vital Signs Vital Signs - First Documented 04/26/23 04/27/23 04/27/23 19:30 00:10 00:30 Temp 36.6 Pulse 71 Resp 18 B/P (MAP) 135/78 (97) Pulse Ox 93 O2 Delivery Room Air O2 Flow Rate 2.00 FiO2 21 Capillary Refill : Less Than 3 Seconds General Appearance: no apparent distress, obese Eyes: Bilateral Eye PERRL, Bilateral Eye EOMI HEENT: No pale conjunctivae (R), No pale conjunctivae (L), No pharyngeal eryt demetrio Neck: non-tender, supple Respiratory: chest non-tender, lungs clear, no respiratory distress, no accessory muscle use, wheezing (expiration, mild ) Cardiovascular: regular rate, rhythm, no edema, no JVD, no murmur Gastrointestinal: normal bowel sounds, guarding, tenderness (RLQ ), hernia (u mbilical ), other (positive McBurneys, positive rosving ) Extremities: non-tender, no pedal edema, no calf tenderness 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, no motor/sensory deficits, alert, normal mood/affect, oriented x 3 Skin: normal color, warm/dry Data Review Labs Laboratory Tests 04/26/23 16:17: White Blood Count 16.8H, Red Blood Count 6.24H, Hemoglobin 18.9H, Hematocrit 56H , Mean Corpuscular Volume 90, Mean Corpuscular Hemoglobin 30, Mean Corpuscular Hemoglobin Concent 34, Red Cell Distribution Width 13.6, Platelet Count 222, Mean Platelet Volume 10.4, Immature Granulocyte % (Auto) 0, Neutrophils (%) (Auto) 83H, Lymphocytes (%) (Auto) 9L, Monocytes (%) (Auto) 7, Eosinophils (%) (Auto) 0, Basophils (%) (Auto) 0, Neutrophils # (Auto) 14.0H, Lymphocytes # (Auto) 1.5, Monocytes # (Auto) 1.2H, Eosinophils # (Auto) 0.1, Basophils # (Auto) 0.0, Immature Granulocyte # (Auto) 0.1, Sodium Level 137, Potassium Level 4.3, Chloride Level 99, Carbon Dioxide Level 25, Anion Gap 13, Blood Urea Nitrogen 10, Creatinine 1.09, Estimat Glomerular Filtration Rate 75, BUN/Creatinine Ratio 9, Glucose Level 133H, Calcium Level 9.8, Corrected Calcium , Total Bilirubin 1.3H, Aspartate Amino Transf (AST/SGOT) 21, Alanine Amino transferase (ALT/SGPT) 45, Alkaline Phosphatase 68, Total Protein 7.8, Albumin 4.6H Assessment/Plan Assessment/Plan Admission Diagonsis Acute Appendicitis * Monitor for change * Metronidazole, ciprofloxacin * Laproscopic appendectomy on 04/28 * NPO at midnight 04/27 Nausea/Vomiting * Zofran A.Fib * currently converted * hold eliquis for surgery WASHINGTON WILKES DO 04/27/23 2325: History of Present Illness History of Present Illness Time Seen by Provider: 13:25 History of Present Illness Surgery asked to admit regarding Acute Appendicitis HPI per ED: Patient is a 67-year-old male who presents to the emergency room with a chief complaint of mid and bilateral lower abdominal pain onset yesterday. He states that moving around and walking make the pain worse. He has had 2 episodes of vomiting, one yesterday and one today. He states he had a fairly normal bowel movement this morning but it was black. He has been taking some Pepto for the stomachache. He has been trying to drink but has felt worse with trying to eat and drink. He has had prior right inguinal hernia repair. Has known periumbilical hernia that is very small and never gives him trouble. He denies blood in his emesis/coffee-ground emesis. No blood in his stool. He has never had any true abdominal surgeries, has never had a colonoscopy. Is a smoker, quit about a month ago. Has a history of A-fib anticoagulated on Eliquis. Hypertension. reports fairly significant sleep apnea. I saw pt in the afternoon and then went back at around 4pm to talk to his and answer her questions, I also spoke with the ED physician and went over the films myself. The pt stated he still had pain but it was better. Rating it as a 4 out of 10 now. Allergies and Home Medications Allergies Coded Allergies: Penicillins (Verified Allergy, Unknown, 03/08/20) Uncoded Allergies: chicken (Adverse Reaction, Intermediate, Hives, 04/27/23) and diarrhea Patient Home Medication List Home Medication List Reviewed: Yes Albuterol Sulfate (Ventolin Hfa) 90 Mcg Hfa.aer.ad, 1 PUFF PO Q6H PRN for SHORTNESS OF BREATH, (Reported) Entered as Reported by: KAYLEY NIÑO on 04/27/23 1013 Last Action: Reviewed Apixaban (Eliquis) 5 Mg Tablet, 5 MG PO BID, (Reported) Entered as Reported by: KAYLEY NIÑO on 04/27/23 100 Last Action: Held Calcium Carb/Magnesium Oxid/D3 (Calcium Magnesium + D Tablet) 400 Mg-167 Mg-133 Unit Tablet, 1 EACH PO BID, (Reported) Entered as Reported by: KAYLEY NIÑO on 04/27/23 1014 Last Action: Converted Cetirizine HCl (Cetirizine HCl) 10 Mg Tablet, 10 MG PO DAILY, (Reported) Entered as Reported by: KAYLEY NIÑO on 04/27/23 100 Last Action: Reviewed Cyanocobalamin (Vitamin B-12) (Vitamin B-12) 1,000 Mcg Tablet, 1,000 MCG PO DAILY, (Reported) Entered as Reported by: KAYLEY NIÑO on 04/27/23 1015 Last Action: Continued Fluticasone Propionate (Fluticasone Propionate) 50 Mcg/Actuation [place].susp, 1 SPRAY NSEACH DAILY, (Reported) Entered as Reported by: KAYLEY NIÑO on 04/27/23 1008 Last Action: Continued Glucosamine/D3/Boswellia Aishwarya (Osteo Bi-Flex Tablet) 1,500 Mg-400 Unit-100 Mg Tablet, 1 EACH PO DAILY, (Reported) Entered as Reported by: KAYLEY NIÑO on 04/27/23 101 Last Action: Held Lisinopril (Lisinopril) 20 Mg Tablet, 20 MG PO BID, (Reported) Entered as Reported by: KAYLEY NIÑO on 04/27/23 100 Last Action: Reviewed Montelukast Sodium (Montelukast Sodium) 10 Mg Tablet, 10 MG PO DAILY, (Reported) Entered as Reported by: KAYLEY NIÑO on 04/27/23 1008 Last Action: Continued Multivitamin (Multivitamin) 1 Each Tablet, 1 EACH PO DAILY, (Reported) Entered as Reported by: KAYLEY NIÑO on 04/27/23 1015 Last Action: Converted Ondansetron (Ondansetron Odt) 8 Mg Tab.rapdis, 8 MG PO Q8H PRN for NAUSEA/VOMITING, (Reported) Entered as Reported by: KAYLEY NIÑO on 04/27/23 1008 Last Action: Held Potassium Citrate (Potassium) 99 Mg Capsule, 99 MG PO DAILY, (Reported) Entered as Reported by: KAYLEY NIÑO on 04/27/23 1015 Last Action: Converted Solifenacin Succinate (Solifenacin Succinate) 5 Mg Tablet, 5 MG PO HS, (Reported) Entered as Reported by: KAYLEY NIÑO on 04/27/23 1009 Last Action: Converted Tamsulosin HCl (Flomax) 0.4 Mg Cap, 0.4 MG PO HS, (Reported) Entered as Reported by: KAYLEY NIÑO on 04/27/23 1008 Last Action: Reviewed Past Iqwkvgk-Tsyhlb-Dnleeh Hx Patient Social History Smoking Status: Former Smoker (50 years, 1-2 packs per year, quit 1 month ago ) Type Used: Cigarettes Recent Hopitalizations: No Alcohol Use?: Yes (somteimes, few shots of whiskey, ) Surgeries History of Surgeries: Yes Surgeries: Abdominal (Right inguinal hernia), Bladder Surgery ("stretched", as a child, unsure) Respiratory History of Respiratory Disorde: Yes Respiratory Disorders: Asthma, Pneumonia, Sleep Apnea (denies using CPAP machine ), COPD Cardiovascular History of Cardiac Disorders: Yes Cardiac Disorders: Atrial Fibrillation (started 3 years ago, Dr. Ascencio ), Hypertension Neurological History of Neurological Disord: No Endocrine History of Endocrine Disorders: No HEENT History of HEENT Disorders: Yes HEENT Disorders: Cataract (few years ago, ) Cancer History of Cancer: No Psychosocial History of Psychiatric Problem: No Integumentary History of Skin or Integumenta: No Blood Transfusions History of Blood Disorders: No Family Medical History Significant Family History: Heart Disease (mother ), Cancer (Father had Colon CA), COPD (father ), Diabetes (daughter ), Lung Disease (uncle ), Stroke (brother ), Other Conditions/Hx (scleroderma in mother ) Review of Systems-General Constitutional: No chills, No fever; weakness (diffuse ), weight loss (8 pounds over 2 weeks ) EENTM: No eye pain, No hoarseness Respiratory: cough; No hemoptysis; phlegm (clear and then yellow ), short of breath Cardiovascular: No chest pain, No palpitations Gastrointestinal: RLQ, abdominal pain, nausea, vomiting (1 episode at hospital, yellow, few oz ) Genitourinary: No dysuria; other (noted smell ) Musculoskeletal: No gout; joint pain (r shoulder ), muscle pain (R shoulder ) Skin: No dryness, No lumps Psychiatric/Neurological: Denies Headache; Numbness Physical Exam-General Problems Physical Exam General Appearance: mild distress, obese Eyes: Bilateral Eye PERRL, Bilateral Eye EOMI HEENT: pharynx normal; No pale conjunctivae (R), No pale conjunctivae (L) Neck: non-tender, supple Respiratory: chest non-tender, lungs clear, no respiratory distress, no accessory muscle use, wheezing (expiration, mild ) Cardiovascular: regular rate, rhythm, no edema, no murmur Gastrointestinal: soft, guarding (voluntary), tenderness (RLQ ), hernia (umbilical ), other (positive McBurneys, positive rosving ) Extremities: non-tender, no pedal edema, no calf tenderness 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 TECHNIQUE: Multiple contiguous axial images were obtained through the abdomen and pelvis after administration of intravenous contrast. Auto Exposure Controls were utilized during the CT exam to meet ALARA standards for radiation dose reduction. All CT scans use one or more of the following dose optimizing techniques: automated exposure control, MA and/or KvP adjustment based on patient size and exam type or iterative reconstruction. INDICATION: 67-year-old male, right lower quadrant abdominal pain, nausea and vomiting. CORRELATION STUDY: None. FINDINGS: LOWER THORAX: Advanced fibrotic-type change about the lung bases. A few small nodules in both lung sun measuring 5 mm or smaller. No basilar infiltrate. Small esophageal hernia. LIVER: Mild fatty infiltration. A few calcified granulomas. No focal lesion. GALLBLADDER: Present and unremarkable. No bile duct dilatation. SPLEEN: Multiple calcified granulomas, normal in size. PANCREAS: Unremarkable. ADRENAL GLANDS: Unremarkable. KIDNEYS: Small exophytic left renal cyst. No calcification or obstruction. ABDOMINAL AORTA: Mild wall desiccation, nonaneurysmal. GASTROINTESTINAL TRACT: Mildly prominent 9 mm with prominent periappendiceal and pericecal inflammatory change consistent with acute appendicitis. No abscess or extraluminal gas. Mild to moderate stool in the colon. A few gas-filled loops of small bowel in the lower abdomen may be reflective of mild reactive ileus. URINARY BLADDER: Unremarkable. REPRODUCTIVE: Prostate gland within normal limits for the patient's age. OSSEOUS STRUCTURES: Mild rightward curvature of the lumbar spine with mildly advanced degenerative change. IMPRESSION: 1. Inflammatory change in right lower quadrant, essentially at the appendix, compatible with acute appendicitis. No evidence for perforation or drainable abscess collection. May be mild associated reactive terminal ileitis and ileus bowel gas pattern. Report was faxed to the [facility] at 9:27 p.m., by rojelio. Dictated by: Dictated on workstation # [id number] Dict: 04/26/[id number] Trans: 04/26/232223 ROJELIO [id number] Interpreted by: MARGOT SIDDIQUI DO Electronically signed by: MARGOT SIDDIQUI DO 04/26/231 Assessment/Plan Assessment/Plan Assessment/Plan Acute Appendicitis * Monitor for change * Metronidazole, ciprofloxacin * Laproscopic appendectomy on 04/28, need to hold surgery because he is anticoagulated * NPO at midnight 04/27 Nausea/Vomiting * Zofran A.Fib * currently converted * hold eliquis for surgery I discussed the case with the ED provider, reviewed the CT myself and then went back to talk to family. I went over options with pt and his ; can try non- operative management of the acute appendicits, however up to 40% of pts still require appendectomy. The other option is Laparoscopic appendectomy tomorrow; both the patient and his would like the surgery. They also asked about repairing the umbilical hernia, but I told them that that could not be done because mesh can't be placed with an ongoing infection. I will try to close the hernia with suture, but this is 50/50 and probably less because of the inflammation. His also asked about colonoscopy because he has never had one, I told them we could do it in about 4-5 weeks after the appendectomy. I went over risks and complications not limited to pain, bleeding, infection, scar and damage to bowel. With colonoscopy it would be possible perforation of bowel. All questions answered to their satisfaction. Supervisory-Addendum Brief Verification & Attestation Participated in pt care: history, MDM, physical Personally performed: exam, history, MDM, supervision of care Care discussed with: Medical Student Procedures: n/a Verification and Attestation of Medical Student E/M Service A medical student performed and documented this service. I then reviewed and verified all information documented by the medical student and made modifications to such information, when appropriate. I personally performed a physical exam, medical decision making and then discussed any differences between the notes and made revisions as necessary to create one note. Washington Wilkes , 04/27/23 , 23:37 TATIANA ANN Apr 27, 2023 07:03 WASHINGTON WILKES DO Apr 27, 2023 23:25
[2023-04-27] MEDS: RT-ALBUTEROL SULF 2.5 MG/3 ML PRE-MIX VIAL INH SCH ×2 (07:31→21:57)
[2023-04-27 08:54] VITALS: BP 140/75
[2023-04-27] MEDS: NS IV 1000 ML 1,000 ML IV SCH ×2 (09:23→20:02)
[2023-04-27] MEDS: NICOTINE 21 MG PATCH TD SCH (09:24)
[2023-04-27 09:38] LABS: BAND NEUTROPHILS 0 %; BASOPHILS % (MANUAL) 0 %; EOSINOPHILS % (MANUAL) 1 %; LYMPHOCYTES % (MANUAL) 11 %; MONOCYTES % (MANUAL) 7 %; NEUTROPHILS % (MANUAL) 81 %; RBC MORPH NORMAL
[2023-04-27 09:39] LABS: HEMATOCRIT 49 % (40-54); HEMOGLOBIN 16.3 g/dL (13.3-17.7); MEAN CORPUSCULAR HEMOGLOBIN 30 pg (25-34); MEAN CORPUSCULAR HGB CONC 33 g/dL (32-36); MEAN CORPUSCULAR VOLUME 90 fL (80-99); MEAN PLATELET VOLUME 10.3 fL (9.0-12.2); PLATELET COUNT 173 10^3/uL (130-400); WHITE BLOOD COUNT 14.8 10^3/uL (4.3-11.0)
[2023-04-27 10:03] LABS: ALBUMIN 3.6 GM/DL (3.2-4.5); POTASSIUM 3.8 MMOL/L (3.6-5.0)
[2023-04-27 10:04] LABS: CALCIUM 8.4 MG/DL (8.5-10.1)
[2023-04-27 10:05] LABS: TOTAL PROTEIN 6.1 GM/DL (6.4-8.2)
[2023-04-27 10:07] LABS: BILIRUBIN,TOTAL 1.2 MG/DL (0.1-1.0)
[2023-04-27] MEDS ORDERED: APIX5TAB PO (10:08)
[2023-04-27] MEDS ORDERED: MONT-40 PO (10:08)
[2023-04-27] MEDS ORDERED: TMSL.4C PO (10:08)
[2023-04-27] MEDS ORDERED: FLUT16SP22 NSEACH (10:08)
[2023-04-27] MEDS ORDERED: CETI10TA17 PO (10:08)
[2023-04-27] MEDS ORDERED: LISI20TA26 PO (10:08)
[2023-04-27] MEDS ORDERED: ONDA8TAB13 PO (10:08)
[2023-04-27 10:09] LABS: CREATININE SERUM 1.09 MG/DL (0.60-1.30)
[2023-04-27] MEDS ORDERED: SOLI5TAB7 PO (10:09)
[2023-04-27] MEDS ORDERED: GLUC-219 PO (10:13)
[2023-04-27] MEDS ORDERED: ALBU8.5H6 PO (10:13)
[2023-04-27] MEDS ORDERED: CALC-408 PO (10:14)
[2023-04-27] MEDS ORDERED: POTA99CA PO (10:15)
[2023-04-27] MEDS ORDERED: CYAN-41 PO (10:15)
[2023-04-27] MEDS ORDERED: MULT-1136 PO (10:15)
[2023-04-27 11:35] VITALS: BP 103/54
--- NOTE | 2023-04-27 11:36 | Consultation ---
HPI History of Present Illness: 67 yo male went to walk-in due to lower abdominal pain, dull on left, but worse on right, no radiation, feeling of having to go to the bathroom urgently. Clinic sent him to ER for concern of appendicitis. He states pain medication does help him feel better as well as nausea medicine. States he has vomited once on Satu rday, once yesterday morning and twice last night. Has had frequent cough and headache when he coughs which started after he got to the hospital. Has not had similar episode in past. Source: patient Date seen by provider: Apr 27, 2023 Time Seen by Provider: 11:34 Attending Physician [place] PCP Admitting Physician: Rene Marrero DO Attending Physician: Rene Marrero DO Consult Date of Admission Apr 26, 2023 at 21:48 Home Medications Home Medications Reviewed patient Home Medication Reconciliation performed by pharmacy medication reconciliations tower technician and/or nursing. Patients Allergies have been reviewed. Allergies Coded Allergies: Penicillins (Verified Allergy, Unknown, 03/08/20) Uncoded Allergies: chicken (Adverse Reaction, Intermediate, Hives, 04/27/23) and diarrhea DWL-[id number]-Skimsu Hx Patient Social History Employed/Student: employed (truck driver teamster), retired Smoking Status: Former Smoker (50 years, 1-2 packs per year, quit 03/2023) Recent Hopitalizations: No Alcohol Use?: Yes (2 shots of whiskey at bedtime when having trouble sleeping, maybe 7-8 times per month) Substance type: Other (speed, black mollies, marijuana last use in 1970s) Immunizations Up To Date Tetanus Booster (TDap): Less than 5yrs Influenza Vaccine Up-to-Date: No; Not Current Past Medical History PMHx: Umbilical hernia Atrial fibrillation Hypertension Environmental allergies Emphysema/asthma overlap BPH Urge incontinence SurgHx: Inguinal hernia repair right 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 Family Medical History Significant Family History: Heart Disease (mother), Cancer (Father (colon) ), COPD (father ), Diabetes (daughter ), Lung Disease (uncle ), Stroke (brother ), Other Conditions/Hx (scleroderma in mother ) Review of Systems ([facility]C) Constitutional: chills; No fever EENTM: hearing loss (chronic, reports 20% hearing in left and 50-60% in right), blurred vision (on and off a couple of years, has seen eye doctor and told he needed cataract surgery at some point); No throat pain Respiratory: cough (sometimes productive of yellow sputum), short of breath (ch ronic) Cardiovascular: No chest pain; edema (feet swell at night, get better after taking off boots); No palpitations Gastrointestinal: RLQ, abdominal pain; No constipation; diarrhea (intermittent since Thursday, worse today); No dysphagia; heartburn, nausea, vomiting Genitourinary: No dysuria, No hesitancy Musculoskeletal: joint pain (chronic bad left hip, right knee) Skin: No rash Psychiatric/Neurological: Headache Reviewed Test Results Reviewed Test Results Lab Laboratory Tests Test 04/26/23 16:17 04/27/23 09:35 Range/Units White Blood Count 16.8 H 14.8 H 4.3-11.0 10^3/uL Red Blood Count 6.24 H 5.43 4.30-5.52 10^6/uL Hemoglobin 18.9 H 16.3 13.3-17.7 g/dL Hematocrit 56 H 49 40-54 % Mean Corpuscular Volume 90 90 80-99 fL Mean Corpuscular Hemoglobin 30 30 25-34 pg Mean Corpuscular Hemoglobin Concent 34 33 32-36 g/dL Red Cell Distribution Width 13.6 13.6 10.0-14.5 % Platelet Count 222 173 130-400 10^3/uL Mean Platelet Volume 10.4 10.3 9.0-12.2 fL Immature Granulocyte % (Auto) 0 % Neutrophils (%) (Auto) 83 H 42-75 % Lymphocytes (%) (Auto) 9 L 12-44 % Monocytes (%) (Auto) 7 0-12 % Eosinophils (%) (Auto) 0 0-10 % Basophils (%) (Auto) 0 0-10 % Neutrophils # (Auto) 14.0 H 1.8-7.8 10^3/uL Lymphocytes # (Auto) 1.5 1.0-4.0 10^3/uL Monocytes # (Auto) 1.2 H 0.0-1.0 10^3/uL Eosinophils # (Auto) 0.1 0.0-0.3 10^3/uL Basophils # (Auto) 0.0 0.0-0.1 10^3/uL Immature Granulocyte # (Auto) 0.1 0.0-0.1 10^3/uL Neutrophils % (Manual) 81 % Lymphocytes % (Manual) 11 % Monocytes % (Manual) 7 % Eosinophils % (Manual) 1 % Basophils % (Manual) 0 % Band Neutrophils 0 % Blood Morphology Comment NORMAL Sodium Level 137 136 135-145 MMOL/L Potassium Level 4.3 3.8 3.6-5.0 MMOL/L Chloride Level 99 103 98-107 MMOL/L Carbon Dioxide Level 25 23 21-32 MMOL/L Anion Gap 13 10 5-14 MMOL/L Blood Urea Nitrogen 10 12 7-18 MG/DL Creatinine 1.09 1.09 0.60-1.30 MG/DL Estimat Glomerular Filtration Rate 75 75 BUN/Creatinine Ratio 9 11 Glucose Level 133 H 188 H 70-105 MG/DL Calcium Level 9.8 8.4 L 8.5-10.1 MG/DL Corrected Calcium 8.7 8.5-10.1 MG/DL Total Bilirubin 1.3 H 1.2 H 0.1-1.0 MG/DL Aspartate Amino Transf (AST/SGOT) 21 13 5-34 U/L Alanine Aminotransferase (ALT/SGPT) 45 30 0-55 U/L Alkaline Phosphatase 68 54 40-136 U/L Total Protein 7.8 6.1 L 6.4-8.2 GM/DL Albumin 4.6 H 3.6 3.2-4.5 GM/DL Radiology CT abdomen/pelvis: IMPRESSION: 1. Inflammatory change in right lower quadrant, essentially at the appendix, compatible with acute appendicitis. No evidence for perforation or drainable abscess collection. May be mild associated reactive terminal ileitis and ileus bowel gas pattern. Physical Exam-([facility]C) Physical Exam Vital Signs VS - Last 72 Hours, by Label 04/26/23 04/26/23 04/26/23 04/26/23 19:30 21:54 22:26 23:00 Temp 36.6 36.9 Pulse 71 98 75 Resp 18 20 20 B/P (MAP) 135/78 (97) 153/85 144/68 (93) Pulse Ox 93 93 95 95 O2 Delivery Room Air Room Air Room Air Room Air 04/26/23 04/27/23 04/27/23 04/27/23 23:11 00:10 00:30 01:00 Temp 36.6 Pulse 94 76 60 Pulse Ox 86 90 O2 Delivery Room Air O2 Flow Rate 2.00 FiO2 21 04/27/23 04/27/23 04/27/23 04/27/23 03:00 07:35 07:38 08:00 Temp 36.5 Pulse 71 70 Resp 18 B/P (MAP) 126/70 (88) Pulse Ox 97 90 O2 Delivery Nasal Cannula Nasal Cannula Nasal Cannula O2 Flow Rate 2.00 2.00 2.00 04/27/23 04/27/23 04/27/23 08:54 11:35 12:15 Temp 36.6 36.6 Pulse 82 65 62 Resp 18 17 B/P (MAP) 140/75 (96) 103/54 (70) Pulse Ox 91 93 O2 Delivery Nasal Cannula Nasal Cannula O2 Flow Rate 2.00 2.00 Capillary Refill : Less Than 3 Seconds General Appearance: WD/WN, no apparent distress Respiratory: lungs clear, normal breath sounds Cardiovascular: regular rate, rhythm, no murmur Gastrointestinal: normal bowel sounds, soft, other (mild ttp RLQ) Extremities: No pedal edema Neurologic/Psychiatric: alert, normal mood/affect Skin: warm/dry Assessment/Plan Assessment/Plan (1) Acute appendicitis Status: Acute Assessment & Plan: Surgery consulted, appreciate recommendations. Ciprofloxacin and metronidazole started. Qualifiers: Qualified Codes: K35.30 - Acute appendicitis with localized peritonitis, without perforation or gangrene (2) Paroxysmal atrial fibrillation Status: Chronic Assessment & Plan: Holding apixiban for planned surgery. Rate controlled. (3) COPD (chronic obstructive pulmonary disease) Status: Chronic Assessment & Plan: Does not require supplemental oxygen at baseline, currently on 2 lpm, no clear evidence of exacerbation, suspect hypoxia due to pain and decreased inspiratory effort. CXR ordered. (4) Hypertension Status: Chronic Assessment & Plan: Resume home meds as needed. Qualifiers: Qualified Codes: I10 - Essential (primary) hypertension (5) Hyperlipidemia Status: Chronic (6) Obesity Status: Chronic (7) Carotid artery stenosis Status: Chronic IVELISSE FERRARA MD Apr 27, 2023 11:36
[2023-04-27] MEDS: CIPROFLOXACIN 400 MG/D5W 200 ML (PRE-MIX) IV SCH ×2 (12:03→21:10)
[2023-04-27 16:25] VITALS: BP 97/49
--- NOTE | 2023-04-27 16:35 | Diagnostic Imaging Report ---
INDICATION: Hypoxia. COMPARISON: 08/03/2021. FINDINGS: Frontal and lateral radiographic views of the chest were obtained and again show diffuse coarse interstitial prominence. There is no new focal alveolar consolidation, large effusion, nor pneumothorax. Cardiac silhouette and pulmonary vasculature are within normal limits. There is probable calcified granuloma within the inferolateral margins of the right middle lobe. Osseous structures show no acute abnormalities. IMPRESSION: 1. Background diffuse interstitial lung disease; likely chronic. Recurrent interstitial pneumonia or edema cannot be entirely excluded. Dictated by: Dictated on workstation # [id number]
[2023-04-27] MEDS: MAGNESIUM OXIDE 400 MG TABLET PO SCH (17:35)
[2023-04-27] MEDS: CALCIUM CARBONATE 600 MG +VITAMIN D TABLET PO SCH (17:35)
[2023-04-27] MEDS: fentaNYL INJECTION 100 MCG/2 ML VIAL IV PRN (18:35)
[2023-04-27 19:51] VITALS: BP 116/56
[2023-04-27] MEDS: TAMSULOSIN 0.4 MG (FLOMAX) CAP PO SCH (20:01)
[2023-04-27] MEDS ORDERED: MAGNESIUM OXID PO SCH (21:00)
[2023-04-27] MEDS ORDERED: D3 PO SCH (21:00)
[2023-04-27] MEDS ORDERED: [UNRECOGNIZED DRUG - OTHER] PO SCH (21:00)
[2023-04-27] MEDS ORDERED: CALCIUM CARB PO SCH (21:00)
[2023-04-27] MEDS ORDERED: NON-FORMULARY MEDICATION 1 EA EA (Solifenacin Succinate 5 MG) PO SCH (21:00)
[2023-04-27 23:36] VITALS: BP 123/60
[2023-04-28] VITALS (16 sets, daily range): BP systolic 85–133; BP diastolic 46–72
[2023-04-28] MEDS: THERAPEUTIC MULTIVITAMIN W/MINERALS TABLET PO SCH (04:22)
[2023-04-28 05:44] LABS: HEMATOCRIT 49 % (40-54); HEMOGLOBIN 16.3 g/dL (13.3-17.7); MEAN CORPUSCULAR HEMOGLOBIN 31 pg (25-34); MEAN CORPUSCULAR HGB CONC 34 g/dL (32-36); MEAN CORPUSCULAR VOLUME 91 fL (80-99); MEAN PLATELET VOLUME 10.1 fL (9.0-12.2); PLATELET COUNT 177 10^3/uL (130-400); WHITE BLOOD COUNT 13.6 10^3/uL (4.3-11.0)
[2023-04-28] MEDS: metroNIDAZOLE 500 MG/100 ML IVPB (PRE-MIX) IV SCH ×3 (05:50→22:50)
[2023-04-28] MEDS: NS IV 1000 ML 1,000 ML IV SCH ×2 (05:50→15:34)
[2023-04-28] MEDS ORDERED: TROSPIUM 20 MG (SANCTURA) TAB PO SCH (06:00)
[2023-04-28 06:04] LABS: ALBUMIN 3.8 GM/DL (3.2-4.5)
[2023-04-28 06:06] LABS: CALCIUM 8.6 MG/DL (8.5-10.1)
[2023-04-28 06:07] LABS: TOTAL PROTEIN 6.7 GM/DL (6.4-8.2)
[2023-04-28 06:09] LABS: BILIRUBIN,TOTAL 1.4 MG/DL (0.1-1.0)
[2023-04-28 06:11] LABS: CREATININE SERUM 0.97 MG/DL (0.60-1.30)
--- NOTE | 2023-04-28 06:53 | Progress Note - Surgery ---
TATIANA ANN 04/28/23 0653: Subjective Date Seen by a Provider: Apr 28, 2023 Time Seen by a Provider: 06:47 Subjective/Events-last exam Rommel, 67M, was sitting at side of bed at time of interview. He had just got a shower. He notes that he was unable to sleep well because of the IV. Rommel notes that he has had some issues with Diarrhea. New notes that last night he did not sleep well. He had to urinate and then was having some anxiety. Last ate yesterday afternoon. Has not had eliquis today or yesterday. Stomach pain is noted to be dull, comes and goes, rated a 3/10. Notes that it has improved since Thursday. Stomach pain still increases with movement such as getting into bed. No other concerns. Understands the surgery he will have today. No new questions. Review of Systems General: Chills, Night Sweats (woke up with wet pillow, new onset ) HEENT: Head Aches (with cough, top of skull and ) Pulmonary: No Dyspnea; Cough (decreased ) Cardiovascular: No: Chest Pain, Palpitations Gastrointestinal: Diarrhea (4 times since 4:40am ) Genitourinary: No Dysuria, No Frequency Musculoskeletal: shoulder pain (R-side, anterior region, unchanged since ), back pain (lower back, intermittent) Neurological: No: Weakness, Numbness, Incoordination Objective Exam Vital Signs Date Time Temp Pulse Resp B/P (MAP) Pulse Ox O2 Delivery O2 Flow Rate FiO2 04/28/23 03:28 36.7 70 17 117/62 (80) 96 Nasal Cannula 2.00 2.00 04/28/23 01:12 70 04/27/23 23:36 36.7 64 17 123/60 (81) 92 Nasal Cannula 2.00 2.00 04/27/23 21:57 91 Nasal Cannula 2.00 04/27/23 20:40 93 Nasal Cannula 04/27/23 19:51 37.0 65 17 116/56 (76) 94 Nasal Cannula 2.00 04/27/23 19:00 65 04/27/23 16:25 37.7 60 17 97/49 (65) 93 Nasal Cannula 2.00 04/27/23 14:50 93 Nasal Cannula 04/27/23 12:15 62 04/27/23 11:35 36.6 65 17 103/54 (70) 93 Nasal Cannula 2.00 04/27/23 08:54 36.6 82 18 140/75 (96) 91 Nasal Cannula 2.00 04/27/23 08:00 Nasal Cannula 2.00 04/27/23 07:38 70 04/27/23 07:35 90 Nasal Cannula 2.00 I & O 04/28/23 07:00 Intake Total 2680 ml Output Total 400 ml Balance 2280 ml Capillary Refill : Less Than 3 Seconds General Appearance: No Apparent Distress, Obese HEENT: Moist Mucous Membranes; No Scleral Icterus (L), No Scleral Icterus (R) Neck: Non Tender, Supple Respiratory: Chest Non Tender, Normal Breath Sounds (improved from yesterday, no noted wheezes ), No Accessory Muscle Use, No Respiratory Distress Cardiovascular: Regular Rate, Rhythm, No Edema Gastrointestinal: soft, no organomegaly, guarding (voluntary), tenderness (RLQ, improved on LLQ ), hernia (umbilical ), other (positive McBurneys, ) Extremity: No Calf Tenderness, No Pedal Edema Neurologic/Psychiatric: Alert, Oriented x3, Other (anxious affect ) Results Lab Laboratory Tests 04/27/23 09:35: White Blood Count 14.8H, Red Blood Count 5.43, Hemoglobin 16.3, Hematocrit 49, Mean Corpuscular Volume 90, Mean Corpuscular Hemoglobin 30, Mean Corpuscular Hemoglobin Concent 33, Red Cell Distribution Width 13.6, Platelet Count 173, Mean Platelet Volume 10.3, Sodium Level 136, Potassium Level 3.8, Chloride Level 103, Carbon Dioxide Level 23, Anion Gap 10, Blood Urea Nitrogen 12, Creatinine 1.09, Estimat Glomerular Filtration Rate 75, BUN/Creatinine Ratio 11, Glucose Level 188H, Calcium Level 8.4L, Corrected Calcium 8.7, Total Bilirubin 1.2H, Aspartate Amino Transf (AST/SGOT) 13, Alanine Aminotransferase (ALT/SGPT) 30, Alkaline Phosphatase 54, Total Protein 6.1L, Albumin 3.6 04/28/23 05:35: White Blood Count 13.6H, Red Blood Count 5.33, Hemoglobin 16.3, Hematocrit 49, Mean Corpuscular Volume 91, Mean Corpuscular Hemoglobin 31, Mean Corpuscular Hemoglobin Concent 34, Red Cell Distribution Width 13.8, Platelet Count 177, Mean Platelet Volume 10.1, Sodium Level 133L, Potassium Level 4.0, Chloride Level 101, Carbon Dioxide Level 25, Anion Gap 7, Blood Urea Nitrogen 11, Creatinine 0.97, Estimat Glomerular Filtration Rate 87, BUN/Creatinine Ratio 11, Glucose Level 155H, Calcium Level 8.6, Corrected Calcium 8.8, Total Bilirubin 1.4H, Aspartate Amino Transf (AST/SGOT) 13, Alanine Aminotransferase (ALT/SGPT) 27, Alkaline Phosphatase 56, Total Protein 6.7, Albumin 3.8 Assessment/Plan Assessment/Plan Assessment/Plan Acute Appendicitis * Metronidazole, ciprofloxacin * Laproscopic appendectomy on 04/28, Nausea/Vomiting * Zofran Hyponatremia * decrease fluid intake Obesity COPD A.Fib * currently converted * hold eliquis for surgery RENE WILKES DO 04/28/23 1231: Subjective Time Seen by a Provider: 11:59 Subjective/Events-last exam Pt seen and examined, with family states he is ready for surgery. Review of Systems General: Chills, Night Sweats (woke up with wet pillow, new onset ) HEENT: Head Aches (with cough, top of skull and ) Pulmonary: No Dyspnea; Cough (decreased ) Cardiovascular: No: Chest Pain, Palpitations Gastrointestinal: Abdominal Pain, Diarrhea (4 times since 4:40am ) Genitourinary: No Dysuria, No Frequency Musculoskeletal: shoulder pain (R-side, anterior region, unchanged since yesterday ), back pain (lower back, intermittent) Objective Exam General Appearance: No Apparent Distress, Obese HEENT: Moist Mucous Membranes; No Scleral Icterus (L), No Scleral Icterus (R) Respiratory: Chest Non Tender, Normal Breath Sounds (improved from yesterday, no noted wheezes ), No Accessory Muscle Use, No Respiratory Distress Cardiovascular: Regular Rate, Rhythm, No Murmur Gastrointestinal: soft, no organomegaly, distended, guarding (voluntary), tenderness (RLQ, improved on LLQ ), hernia (umbilical ) Extremity: No Calf Tenderness, No Pedal Edema Neurologic/Psychiatric: Other (anxious affect ) Assessment/Plan Assessment/Plan Assessment/Plan Acute Appendicitis * Metronidazole, ciprofloxacin * Laproscopic appendectomy on 04/28, Nausea/Vomiting * Zofran Hyponatremia * decrease fluid intake Obesity COPD A.Fib * currently converted * hold eliquis for surgery To OR for Lap appy, all questions answered to his and his families satisfaction Supervisory-Addendum Brief Verification & Attestation Participated in pt care: history, MDM, physical Personally performed: exam, history, MDM, supervision of care Care discussed with: Medical Student Procedures: n/a Verification and Attestation of Medical Student E/M Service A medical student performed and documented this service. I then reviewed and verified all information documented by the medical student and made modifications to such information, when appropriate. I personally performed a physical exam, medical decision making and then discussed any differences between the notes and made revisions as necessary to create one note. Rene Wilkes , 04/28/23 , 12:31 TATIANA ANN Apr 28, 2023 06:53 RENE WILKES DO Apr 28, 2023 12:31
[2023-04-28] MEDS: RT-ALBUTEROL SULF 2.5 MG/3 ML PRE-MIX VIAL INH SCH ×2 (08:50→21:22)
[2023-04-28] MEDS ORDERED: NON-FORMULARY MEDICATION 1 EA EA (Cetirizine HCl 10 MG) PO SCH (09:00)
[2023-04-28] MEDS: MAGNESIUM OXIDE 400 MG TABLET PO SCH ×2 (09:00→18:10)
[2023-04-28] MEDS ORDERED: NON-FORMULARY MEDICATION 1 EA EA (Potassium Citrate (Potassium) 99 MG) PO SCH (09:00)
[2023-04-28] MEDS: NICOTINE 21 MG PATCH TD SCH (09:00)
[2023-04-28] MEDS: CALCIUM CARBONATE 600 MG +VITAMIN D TABLET PO SCH ×2 (09:00→18:10)
[2023-04-28] MEDS ORDERED: NON-FORMULARY MEDICATION 1 EA EA (Multivitamin 1 EACH) PO SCH (09:00)
[2023-04-28] MEDS: LORATADINE 10 MG TABLET PO SCH (09:01)
[2023-04-28] MEDS: FLUTICASONE NASAL SPRAY (120 SPRAYS) NS SCH (09:01)
[2023-04-28] MEDS: CYANOCOBALAMIN 1,000 MCG TABLET PO SCH (09:01)
[2023-04-28] MEDS: MONTELUKAST 10 MG TABLET PO SCH (09:02)
[2023-04-28] MEDS: CIPROFLOXACIN 400 MG/D5W 200 ML (PRE-MIX) IV SCH ×2 (10:14→21:26)
[2023-04-28] MEDS ORDERED: LIDOCAINE 2% w/EPI 1:100,000 20 ML VIAL ONE (10:52)
[2023-04-28] MEDS ORDERED: SUCCINYLCHOLINE INJ 20 MG/1 ML 10 ML VIAL ONE (11:59)
[2023-04-28] MEDS ORDERED: dexAMETHasone INJ 10 MG/ML 1 ML VIAL ONE (11:59)
[2023-04-28] MEDS ORDERED: MIDAZOLAM INJ 2 MG/2 ML VIAL ONE (11:59)
[2023-04-28] MEDS ORDERED: proPOfol INJECTION 200 MG/20 ML VIAL IV ONE (11:59)
[2023-04-28] MEDS ORDERED: ONDANSETRON INJECTION 4 MG/2 ML (SDV) ONE ×2 (11:59→14:47)
[2023-04-28] MEDS ORDERED: ROCURONIUM 50 MG/5 ML VIAL IV ONE (11:59)
[2023-04-28] MEDS ORDERED: fentaNYL INJECTION 100 MCG/2 ML VIAL ONE (11:59)
[2023-04-28] MEDS ORDERED: LIDOCAINE PF 2% 5 ML VIAL ONE (11:59)
[2023-04-28] MEDS ORDERED: LACTATED RINGERS 1,000 ML 1,000 ML IV PRN (12:45)
[2023-04-28] MEDS ORDERED: GLYCOPYRROLATE INJ 0.2 MG/ML 2 ML VIAL ONE (13:41)
[2023-04-28] MEDS ORDERED: NEOSTIGMINE 1 MG/1ML 10 ML VIAL ONE (13:41)
[2023-04-28] MEDS ORDERED: SEVOFLURANE (ULTANE) 15 ML INHAL SOLN ONE (13:46)
[2023-04-28] MEDS ORDERED: SUGAMMADEX INJ 100 MG/ML 5 ML VIAL IV ONE (13:50)
[2023-04-28] MEDS ORDERED: morphine INJ 10 MG/ML 1ML (SYR OR VIAL) IVP ONE (14:00)
[2023-04-28] MEDS ORDERED: HYDROmorphone INJECTION 2 MG/ML VIAL IV ONE (14:00)
[2023-04-28] MEDS ORDERED: RT-ALBUTEROL SULF 2.5 MG/3 ML PRE-MIX VIAL INH ONE (14:00)
[2023-04-28] MEDS ORDERED: ONDANSETRON INJECTION 4 MG/2 ML (SDV) IVP PRN (14:00)
[2023-04-28] MEDS ORDERED: RT-ALBUTEROL SULF 2.5 MG/3 ML PRE-MIX VIAL ONE (14:05)
--- NOTE | 2023-04-28 14:14 | Progress Note ---
GREGG MAY 04/28/23 1414: Subjective Subjective/Events-last exam Rommel is feeling ok this morning. He continues to endorse some pain along the lower abdomen and nausea. He also reports new diarrhea this morning. He has had 4 loose bowel movements that he describes as dirt mixed with water and a black appearance he attributes to his pepto bismol use prior to being admitted to the hospital. He still reports having a cough but feel that it has improved. Overn ight, he did experience some night sweats but has denied any feverishness. Review of Systems General: No Chills; Night Sweats HEENT: No Head Aches, No Visual Changes, No Eye Pain, No Ear Pain, No Dysphasia Pulmonary: No Dyspnea; Cough Cardiovascular: No: Chest Pain, Palpitations Gastrointestinal: Nausea, Abdominal Pain, Diarrhea; No: Vomiting Genitourinary: No Dysuria, No Frequency Objective Exam Last Set of Vital Signs Vital Signs Date Time Temp Pulse Resp B/P (MAP) Pulse Ox O2 Delivery O2 Flow Rate FiO2 04/28/23 11:30 36.6 71 17 110/65 (80) 93 Nasal Cannula 2.00 04/27/23 00:10 21 Capillary Refill : Less Than 3 Seconds I&O Intake and Output 04/27/23 23:59 Intake Total 3180 ml Output Total 400 ml Balance 2780 ml Intake Oral 1980 ml IV Total 1200 ml Output Urine Total 400 ml # Voids 5 General: Alert, Oriented X3, No Acute Distress HEENT: PERRLA, EOMI Lungs: Other (faint expiratory wheezes bilaterally) Heart: Regular Rate Abdomen: Normal Bowel Sounds, Other (Tenderness in the RLQ ) Extremities: No Edema, Normal Pulses Skin: No Rashes, No Significant Lesion Results/Procedures Lab Laboratory Tests 04/28/23 05:35: White Blood Count 13.6H, Red Blood Count 5.33, Hemoglobin 16.3, Hematocrit 49, Mean Corpuscular Volume 91, Mean Corpuscular Hemoglobin 31, Mean Corpuscular Hemoglobin Concent 34, Red Cell Distribution Width 13.8, Platelet Count 177, Mean Platelet Volume 10.1, Sodium Level 133L, Potassium Level 4.0, Chloride Level 101, Carbon Dioxide Level 25, Anion Gap 7, Blood Urea Nitrogen 11, Creatinine 0.97, Estimat Glomerular Filtration Rate 87, BUN/Creatinine Ratio 11, Glucose Level 155H, Calcium Level 8.6, Corrected Calcium 8.8, Total Bilirubin 1.4H, Aspartate Amino Transf (AST/SGOT) 13, Alanine Aminotransferase (ALT/SGPT) 27, Alkaline Phosphatase 56, Total Protein 6.7, Albumin 3.8 Radiology CXR 04/27/23 IMPRESSION: 1. Background diffuse interstitial lung disease; likely chronic. Recurrent interstitial pneumonia or edema cannot be entirely excluded. Assessment/Plan Assessment/Plan (1) Acute appendicitis Status: Acute Assessment & Plan: Appendectomy planned for later today. Continue Ciprofloxacin and metronidazole. Qualifiers: Qualified Codes: K35.30 - Acute appendicitis with localized peritonitis, without perforation or gangrene (2) Paroxysmal atrial fibrillation Status: Chronic Assessment & Plan: Holding apixiban for planned surgery. Rate controlled. (3) COPD (chronic obstructive pulmonary disease) Status: Chronic Assessment & Plan: Does not require supplemental oxygen at baseline, currently on 2 lpm, no clear evidence of exacerbation, suspect hypoxia due to pain and decreased inspiratory effort. (4) Hypertension Status: Chronic Assessment & Plan: Resume home meds as needed. Qualifiers: Qualified Codes: I10 - Essential (primary) hypertension (5) Hyperlipidemia Status: Chronic (6) Obesity Status: Chronic (7) Carotid artery stenosis Status: Chronic IVELISSE FERRARA MD 04/28/23 2110: Supervisory-Addendum Brief Verification & Attestation Participated in pt care: history, MDM, physical Personally performed: exam, history, MDM, supervision of care Care discussed with: Medical Student Procedures: n/a I personally performed or re-performed the history, physical exam and treatment for the E/M. I discussed the case with the Medical Student, and concur with the Medical Student documentation of history, physical exam and treatment plan unless otherwise noted. GREGG MAY Apr 28, 2023 14:14 IVELISSE FERRARA MD Apr 28, 2023 21:10
[2023-04-28] MEDS ORDERED: morphine INJ 10 MG/ML 1ML (SYR OR VIAL) ONE (14:44)
[2023-04-28] MEDS: TROSPIUM 20 MG (SANCTURA) TAB PO SCH (15:34)
--- NOTE | 2023-04-28 15:40 | Progress Note-Post Operative ---
Post-Operative Progess Note Surgeon (s)/Learning Support Resource Room Teacher (s) Surgeon WASHINGTON WILKES DO Learning Support Resource Room Teacher: LUIZA Fairchild Pre-Operative Diagnosis Acute appy Post-Operative Diagnosis Acute appy Procedure & Operative Findings Date of Procedure 04/28/23 Procedure Performed/Findings Laparoscopic Appendectomy COMPLICATIONS: None. INDICATIONS: The patient is a 67 year old male who has been having right lower quadrant abdominal pain. Patient's exam consistent with appendicitis. I discussed risk and benefits of laparoscopic appendectomy and all indicated procedures. The patient understands the risks and benefits and wishes to proceed. Consent was signed on the chart. DESCRIPTION OF PROCEDURE: The patient was taken to the operating suite, prepped and draped in a sterile fashion. Timeout was performed. Local anesthetic was infiltrated just above the umbilicus and 11-blade scalpel was used to make a skin incision. Cautery was used to dissect down to the fascia and scored. Kochers were used to grasp and elevate it and the abdomen was then entered. An 0 Vicryl was placed in a [id number] fashion for closure at the end of the case. The balloon trocar was inserted into the abdomen and pneumoperitoneum was achieved. Under direct visualization of the laparoscope, a 5 mm trocar was placed in the suprapubic region and a 5 mm trocar was placed in the left lower quadrant. Appendix was very difficult to locate; I had to carefully push the Terminal ileum away and find the cecum. I found an inflamed mass/ball of tissue and I think I found the appendix; but I am honestly not 100% sure. I used blunt dissection, hydrodissection and the Ligasure to get down to the base of the Cecum wher appendix is supposed to be. I was pushing the Terminal ileum up out of the way and could see very clearly where it went into the Cecum. I was well away from this area. Everything was stuck down in the right paracolic gutter. I think I had a hold of the appendix; it did rip in half and then grabbed again and got an Endo-JUNIOR 2.5 stapler to fire across what I believe was the base of the appendix. I then spent more time gently moving things around to make sure there was no other tubular structure to find...did not find one. The mesoappendix had been divided, with the Ligasure. The tissue I thought was the appendix was then placed in an Endobag and removed through the 12 mm trocar site. The abdomen was then irrigated and suctioned. No other pathology noted; I did take a picture of old mesh under peritoneum from the right inguinal hernia repair. I elected to place a 19French Vipul drain under the cecum and into the pelvis to drain the area. It was brought out through the suprapubic 5mm site and sutured in place with 3-0 Nylone. The abdomen was then desufflated and the trocars were removed. The 0 Vicryl placed at the beginning of the case was then tied closing the 12 mm fascial defect. The skin was then closed using 4-0 Monocryl in a subcuticular fashion. The abdomen was then washed and dried and Skin Affix was placed over the incisions. The patient tolerated the procedure well without any complications and was taken to the recovery room in stable condition. Anesthesia Type GET Estimated Blood Loss Estimated blood loss (mL): less than 50ml Specimens/Packing Specimens Removed appendix and surrounding inflamed tissue WASHINGTON WILKES DO Apr 28, 2023 15:40
[2023-04-28] MEDS: TAMSULOSIN 0.4 MG (FLOMAX) CAP PO SCH (20:28)
[2023-04-29] MEDS: NS IV 1000 ML 1,000 ML IV SCH ×2 (02:25→09:30)
[2023-04-29] MEDS: fentaNYL INJECTION 100 MCG/2 ML VIAL IV PRN ×2 (02:38→06:20)
[2023-04-29 03:13] VITALS: BP 118/62
[2023-04-29] MEDS: TROSPIUM 20 MG (SANCTURA) TAB PO SCH ×2 (06:17→16:57)
[2023-04-29] MEDS: metroNIDAZOLE 500 MG/100 ML IVPB (PRE-MIX) IV SCH ×2 (06:17→13:17)
[2023-04-29] MEDS: THERAPEUTIC MULTIVITAMIN W/MINERALS TABLET PO SCH (06:17)
[2023-04-29 06:23] LABS: HEMATOCRIT 46 % (40-54); HEMOGLOBIN 15.3 g/dL (13.3-17.7); MEAN CORPUSCULAR HEMOGLOBIN 31 pg (25-34); MEAN CORPUSCULAR HGB CONC 34 g/dL (32-36); MEAN CORPUSCULAR VOLUME 91 fL (80-99); MEAN PLATELET VOLUME 10.7 fL (9.0-12.2); PLATELET COUNT 185 10^3/uL (130-400)
[2023-04-29 06:35] LABS: ALBUMIN 3.4 GM/DL (3.2-4.5)
[2023-04-29 06:36] LABS: POTASSIUM 4.1 MMOL/L (3.6-5.0)
[2023-04-29 06:37] LABS: CALCIUM 8.3 MG/DL (8.5-10.1)
[2023-04-29 06:38] LABS: TOTAL PROTEIN 6.3 GM/DL (6.4-8.2)
[2023-04-29 06:40] LABS: BILIRUBIN,TOTAL 0.5 MG/DL (0.1-1.0)
[2023-04-29 06:42] LABS: CREATININE SERUM 0.82 MG/DL (0.60-1.30)
--- NOTE | 2023-04-29 06:55 | Progress Note - Surgery ---
TATIANA ANN 04/29/23 0655: Subjective Date Seen by a Provider: Apr 29, 2023 Time Seen by a Provider: 06:47 Subjective/Events-last exam Rommel, 67M, was watching TV prior to arrival. He notes that he has a lot of pain, with it primarily in the RLQ. The pain gets worse with movement. The pain medication has helped to decrease the pain. He says that the pain is a 9/10 when ambulating, when laying down the pain is a 5/10. The pain is described as sharp when moving, aching and constant when laying down. It also gets worse when he coughs. Rommel denies difficulty breathing. He does not use oxygen at home. Rommel notes that he is urinating, he notices no changes currently. He denies any hematuria. Rommel denies any bowel movements since before his surgery. He has not passed any gas since before surgery. Rommel notes that he has no other concerns. Rommel notes that he has not gotten a lot of sleep due to being woken up. He says that his headache has resolved and he is feeling better. He notes coming out of the anesthesia was a long process that he did not like. "I feel better now than before" Review of Systems General: No Chills, No Fatigue HEENT: No Head Aches, No Dysphasia, No Sore Throat Pulmonary: No Dyspnea (able to ambulate to bathroom); Cough (random, unsure of frequency ) Cardiovascular: No: Chest Pain, Palpitations Gastrointestinal: Abdominal Pain (RLQ ); No: Nausea, Vomiting Genitourinary: No Dysuria, No Incontinence, No Hematuria Musculoskeletal: No: shoulder pain, arm pain, back pain Neurological: No: Weakness, Numbness Objective Exam Vital Signs Date Time Temp Pulse Resp B/P (MAP) Pulse Ox O2 Delivery O2 Flow Rate FiO2 04/29/23 03:13 36.2 90 18 118/62 (80) 95 Nasal Cannula 5.00 5.00 04/29/23 00:43 63 04/28/23 23:30 36.5 67 18 116/56 (76) 95 Nasal Cannula 5.00 5.00 04/28/23 21:22 94 Nasal Cannula 5.00 04/28/23 20:00 Nasal Cannula 5.00 04/28/23 19:52 36.2 58 18 129/72 (91) 91 Nasal Cannula 5.00 04/28/23 19:19 60 04/28/23 15:39 37.1 78 18 133/69 (90) 92 Nasal Cannula 5.00 04/28/23 15:20 Nasal Cannula 5.00 04/28/23 15:20 36.5 20 115/61 (79) 92 Nasal Cannula 5.00 04/28/23 15:15 Nasal Cannula 5.00 04/28/23 15:10 20 115/61 (79) 92 Nasal Cannula 5.00 04/28/23 15:00 Nasal Cannula 5.00 04/28/23 15:00 20 115/61 (79) 92 Nasal Cannula 5.00 04/28/23 14:50 20 117/59 (78) 92 Nasal Cannula 5.00 04/28/23 14:45 Nasal Cannula 5.00 04/28/23 14:40 20 124/57 (79) 93 Nasal Cannula 04/28/23 14:30 20 97/67 (77) 92 Nasal Cannula 6.00 04/28/23 14:30 OxyMask 10.00 04/28/23 14:20 20 94/53 (67) 90 OxyMask 10.00 04/28/23 14:15 OxyMask 10.00 04/28/23 14:10 20 95/55 (68) 91 OxyMask 10.00 04/28/23 14:00 20 94/46 (62) 90 OxyMask 10.00 04/28/23 14:00 OxyMask 10.00 04/28/23 13:54 36.7 20 85/65 (72) 89 OxyMask 10.00 04/28/23 13:54 OxyMask 10.00 04/28/23 11:30 36.6 71 17 110/65 (80) 93 Nasal Cannula 2.00 04/28/23 08:51 94 Nasal Cannula 2.00 04/28/23 08:00 Nasal Cannula 04/28/23 07:35 36.7 67 17 102/63 (76) 94 Nasal Cannula 2.00 04/28/23 07:00 80 I & O 04/29/23 07:00 Intake Total 960 ml Output Total 2955 ml Balance -1995 ml Capillary Refill : Less Than 3 SecondsLess Than 3 Seconds General Appearance: No Apparent Distress, Obese HEENT: Moist Mucous Membranes; No Scleral Icterus (L), No Scleral Icterus (R) Neck: Non Tender, Supple Respiratory: Chest Non Tender, Normal Breath Sounds (improved from yesterday, no noted wheezes ), No Accessory Muscle Use, No Respiratory Distress Cardiovascular: Regular Rate, Rhythm, No Murmur Gastrointestinal: soft, no organomegaly, guarding (involuntary ), tenderness (RLQ, present ), hernia (umbilical ), other (3 incisions, no surrounding erythema, slight bruising at umbilical incision, healing well. Drain is draining fluid, yellow in color ) Extremity: No Calf Tenderness, No Pedal Edema Neurologic/Psychiatric: Alert, Oriented x3, Normal Mood/Affect, Other (anxious affect ) Skin: Normal Color, Warm/Dry, Other (3 incisions on abdomen ) Results Lab Laboratory Tests 04/29/23 05:50: White Blood Count 14.0H, Red Blood Count 5.02, Hemoglobin 15.3, Hematocrit 46, Mean Corpuscular Volume 91, Mean Corpuscular Hemoglobin 31, Mean Corpuscular Hemoglobin Concent 34, Red Cell Distribution Width 13.6, Platelet Count 185, Mean Platelet Volume 10.7, Sodium Level 133L, Potassium Level 4.1, Chloride Level 103, Carbon Dioxide Level 22, Anion Gap 8, Blood Urea Nitrogen 11, Creatinine 0.82, Estimat Glomerular Filtration Rate 97, BUN/Creatinine Ratio 13, Glucose Level 201H, Calcium Level 8.3L, Corrected Calcium 8.8, Total Bilirubin 0.5, Aspartate Amino Transf (AST/SGOT) 11, Alanine Aminotransferase (ALT/SGPT) 20, Alkaline Phosphatase 55, Total Protein 6.3L, Albumin 3.4 Assessment/Plan Assessment/Plan Assessment/Plan S/P Laproscopic Appendectomy * Pain management * Metronidazole, Ciprofloxacin Nausea * Zofran Hyponatremia * decrease fluid intake Obesity COPD A.Fib * currently converted * hold eliquis for 5 days past surgical date RENE WILKES DO 04/29/23 1234: Subjective Time Seen by a Provider: 11:03 Subjective/Events-last exam Pt seen and examined, states pain is controlled. He is eating but hasn't had a BM yet. Review of Systems Pulmonary: No Dyspnea (able to ambulate to bathroom); Cough (random, unsure of frequency ) Cardiovascular: No: Chest Pain, Palpitations Gastrointestinal: Abdominal Pain (RLQ ); No: Nausea, Vomiting Objective Exam General Appearance: No Apparent Distress, Obese HEENT: Moist Mucous Membranes Respiratory: Chest Non Tender, Normal Breath Sounds (improved from yesterday, no noted wheezes ), No Accessory Muscle Use, No Respiratory Distress Cardiovascular: Regular Rate, Rhythm, No Murmur Gastrointestinal: soft, no organomegaly, guarding (voluntary), tenderness (RLQ, present ), hernia (umbilical ), other (3 incisions, no surrounding erythema, slight bruising at umbilical incision, healing well. Drain is draining fluid, yellow in color ) Assessment/Plan Assessment/Plan Assessment/Plan S/P Laproscopic Appendectomy * Pain management * Metronidazole, Ciprofloxacin Nausea * Zofran Hyponatremia * decrease fluid intake Obesity COPD A.Fib * currently converted * hold eliquis for 5 days past surgical date Supervisory-Addendum Brief Verification & Attestation Participated in pt care: history, MDM, physical Personally performed: exam, history, MDM, supervision of care Care discussed with: Medical Student Procedures: n/a Verification and Attestation of Medical Student E/M Service A medical student performed and documented this service. I then reviewed and verified all information documented by the medical student and made mo difications to such information, when appropriate. I personally performed a physical exam, medical decision making and then discussed any differences between the notes and made revisions as necessary to create one note. Rene Wilkes , 04/29/23 , 12:30 TATIANA ANN Apr 29, 2023 06:55 RENE WILKES DO Apr 29, 2023 12:34
--- NOTE | 2023-04-29 07:21 | Anesthesia-General Post-Op ---
General Patient Condition Mental Status/LOC: Same as Preop Cardiovascular: Satisfactory Nausea/Vomiting: Absent Respiratory: Satisfactory Pain: Controlled Complications: Absent Post Op Complications Complications None Follow Up Care/Instructions Patient Instructions None needed. Anesthesia/Patient Condition Patient Condition Patient is doing well, no complaints, stable vital signs, no apparent adverse anesthesia problems. No complications reported per nursing. NATALIE SANCHEZ CRNA Apr 29, 2023 07:21
[2023-04-29] MEDS: RT-ALBUTEROL SULF 2.5 MG/3 ML PRE-MIX VIAL INH SCH (07:43)
--- NOTE | 2023-04-29 08:05 | Progress Note ---
GREGG MAY 04/29/23 0805: Subjective Subjective/Events-last exam Patient is feeling ok this morning. Patient did endorse having some nausea and dizziness postop that has improved. He still has pain that he rates a 5/10 that has been improving since surgery. He does feel like his abdomen is distended and has some general discomfort in his abdomen. He has not passed gas nor had a bowel movement since surgery. Patient was able to tolerate liquids last night and had no difficulty with breakfast. Patient did have an increased oxygen requirement that he attributes to not being able to take as deep of breaths due to abdominal distention. DA Drain this morning was serosanguinous and later in the day was draining clear fluid. Review of Systems General: No Chills, No Night Sweats; Appetite (good appetite) HEENT: No Head Aches; Visual Changes (blurry vision last night for a couple minutes ); No Eye Pain, No Ear Pain, No Dysphasia Pulmonary: No Dyspnea; Cough Cardiovascular: No: Chest Pain, Palpitations, Lt Headedness Gastrointestinal: Nausea (little bit of nause post surgery ), Abdominal Pain; No: Vomiting Genitourinary: No Dysuria Neurological: No: Numbness Objective Exam Last Set of Vital Signs Vital Signs Date Time Temp Pulse Resp B/P (MAP) Pulse Ox O2 Delivery O2 Flow Rate FiO2 04/29/23 07:43 96 Nasal Cannula 5.00 04/29/23 03:13 36.2 90 18 118/62 (80) 04/27/23 00:10 21 Capillary Refill : Less Than 3 SecondsLess Than 3 Seconds I&O Intake and Output 04/28/23 23:59 Intake Total 360 ml Output Total 2030 ml Balance -1670 ml Intake Oral 360 ml Output Urine Total 1900 ml Drainage Total 130 ml # Voids 5 # Bowel Movements 3 General: Alert, Oriented X3 HEENT: PERRLA, EOMI Neck: Supple Lungs: Clear to Auscultation, Normal Air Movement Heart: Regular Rate, Rubs Abdomen: Soft, Other (Abdomen distended. Tenderness in the RLQ improved from yesterday ) Extremities: No Edema, Normal Pulses Results/Procedures Lab Laboratory Tests 04/29/23 05:50: White Blood Count 14.0H, Red Blood Count 5.02, Hemoglobin 15.3, Hematocrit 46, Mean Corpuscular Volume 91, Mean Corpuscular Hemoglobin 31, Mean Corpuscular Hemoglobin Concent 34, Red Cell Distribution Width 13.6, Platelet Count 185, Mean Platelet Volume 10.7, Sodium Level 133L, Potassium Level 4.1, Chloride Level 103, Carbon Dioxide Level 22, Anion Gap 8, Blood Urea Nitrogen 11, Creatinine 0.82, Estimat Glomerular Filtration Rate 97, BUN/Creatinine Ratio 13, Glucose Level 201H, Calcium Level 8.3L, Corrected Calcium 8.8, Total Bilirubin 0.5, Aspartate Amino Transf (AST/SGOT) 11, Alanine Aminotransferase (ALT/SGPT) 20, Alkaline Phosphatase 55, Total Protein 6.3L, Albumin 3.4 Radiology CXR 04/27/23 IMPRESSION: 1. Background diffuse interstitial lung disease; likely chronic. Recurrent interstitial pneumonia or edema cannot be entirely excluded. Assessment/Plan Assessment/Plan (1) Acute appendicitis Status: Acute Assessment & Plan: s/p Appendectomy POD#1 Continue Ciprofloxacin and metronidazole. Qualifiers: Qualified Codes: K35.30 - Acute appendicitis with localized peritonitis, without perforation or gangrene (2) Paroxysmal atrial fibrillation Status: Chronic Assessment & Plan: Holding apixiban till POD#5 per surgery recommendation (3) COPD (chronic obstructive pulmonary disease) Status: Chronic Assessment & Plan: Does not require supplemental oxygen at baseline.This morning patient was on 5lpm that was weaned prior to discharge (4) Hypertension Status: Chronic Assessment & Plan: Resume home meds as needed. Qualifiers: Qualified Codes: I10 - Essential (primary) hypertension (5) Hyperlipidemia Status: Chronic (6) Obesity Status: Chronic (7) Carotid artery stenosis Status: Chronic IVELISSE FERRARA MD 04/29/23 1740: Supervisory-Addendum Brief Verification & Attestation Participated in pt care: history, MDM, physical Personally performed: exam, history, MDM, supervision of care Care discussed with: Medical Student Procedures: n/a I personally performed or re-performed the history, physical exam and treatment for the E/M. I discussed the case with the Medical Student, and concur with the Medical Student documentation of history, physical exam and treatment plan unless otherwise noted. GREGG MAY Apr 29, 2023 08:05 IVELISSE FERRARA MD Apr 29, 2023 17:40
[2023-04-29 08:16] VITALS: BP 115/66
[2023-04-29] MEDS: MAGNESIUM OXIDE 400 MG TABLET PO SCH ×2 (09:29→17:46)
[2023-04-29] MEDS: LORATADINE 10 MG TABLET PO SCH (09:30)
[2023-04-29] MEDS: CYANOCOBALAMIN 1,000 MCG TABLET PO SCH (09:30)
[2023-04-29] MEDS: FLUTICASONE NASAL SPRAY (120 SPRAYS) NS SCH (09:30)
[2023-04-29] MEDS: NICOTINE 21 MG PATCH TD SCH (09:30)
[2023-04-29] MEDS: MONTELUKAST 10 MG TABLET PO SCH (09:30)
[2023-04-29] MEDS: CALCIUM CARBONATE 600 MG +VITAMIN D TABLET PO SCH ×2 (09:30→17:47)
[2023-04-29] MEDS: CIPROFLOXACIN 400 MG/D5W 200 ML (PRE-MIX) IV SCH (09:30)
[2023-04-29 11:40] VITALS: BP 119/62
[2023-04-29] MEDS ORDERED: ACHD5005 PO (12:37)
--- NOTE | 2023-04-29 12:40 | Discharge Inst-Surgical ---
Discharge Inst-Surgical Depart Medication/Instructions New, Converted or Re-Newed RX: Transmitted to Pharmacy Patient Instructions Follow up Appt: Make appointment for 1 week. [phone] Instructions: No lifting greater than 20 pounds. No strenuous activity. May shower in 24 hours, no tub bath or soaking. Use incentive spirometer at home as directed. No Smoking Skin/Wound Care: May remove bandages in am. You need to leave the Dermabond on incision it will fall off on it's own. Symptoms to Report: Appetite Changes, Extremity Discoloration, Numbness/Tingling, Swelling Increased, Bleeding Excessive, Eyesight Changes, Pain Increased, Urine Color Change, Constipation(Persistent), Fever over 101 degree F, Pain/Pressure in chest, Urinating Difficulty, Cough Up/Vomit Blood, Heart Beat Irreg/Pounding, Pain/Pressure in jaw, Cramps in feet or legs, Lightheadedness, Pain/Pressure in shoulder, Diarrhea(Persistent), Memory Changes Suddenly, Questions/Concerns, Weight gain consecutive days, Dizziness/Fainting, Nausea/Vomiting, Shortness of Breath, Weight gain over 2 pounds If questions or concerns contact your physician Or seek help at emergency department. Activity Activity as Tolerated: Yes Activity Instructions: Avoid Stress to Incision Driving Instructions: No Driving/Refer to Dr. Jade Discharge Diet: No Restrictions Diet After 24 Hours: Clear Liquid if Nauseous If Any Problems/Questions/Issu: Contact Your Physician, Go to Emergency Room Skin/Wound Care Infection Signs and Symptoms: Increased Redness, Foul Odor of Wound, Increased Drainage, Skin Itchy or Has a Rash, Increased Swelling, Temperature Above 101 F Wound Care Comment: Draing teaching Bathing Instructions: Shower Stitches/[place]/Dermabond Dis: Dermabond W[place] WILKES DO Apr 29, 2023 12:40
[2023-04-29 14:17] VITALS: BP 119/62
[2023-04-29] MEDS ORDERED: CALCIUM CARBONATE 500 MG CHEW TABLET PO ONE (14:30)
[2023-04-29] MEDS ORDERED: CALCIUM CARBONATE 500 MG CHEW TABLET PO NR (15:00)
[2023-04-29 16:00] VITALS: BP 163/69
[2023-04-29] MEDS ORDERED: DOCU100C37 PO (16:46)
[2023-04-29] MEDS ORDERED: POLY17PO6 PO (16:46)
== END 2023-04-29 18:05 | disposition home or self-care (01) | DRG 398 ==
LOC: EDUNIT# 19:22 → ER 19:24 → 4TH 21:48
PROVIDERS: ADMIT Surgery; ATTEND Surgery
PROC: 0DTJ4ZZ Resection of Appendix, Percutaneous Endoscopic Approach (ICD-10-PCS; principal; 2023-04-28 12:02)
DX: K35.80 Unspecified acute appendicitis (principal); E87.1 Hypo-osmolality and hyponatremia; E66.9 Obesity, unspecified; Z68.32 Body mass index [BMI] 32.0-32.9, adult; J43.9 Emphysema, unspecified; I10 Essential (primary) hypertension; I48.0 Paroxysmal atrial fibrillation; G47.30 Sleep apnea, unspecified; I65.29 Occlusion and stenosis of unspecified carotid artery; N40.1 Benign prostatic hyperplasia with lower urinary tract symptoms; N39.41 Urge incontinence; K21.9 Gastro-esophageal reflux disease without esophagitis; E78.5 Hyperlipidemia, unspecified; H91.90 Unspecified hearing loss, unspecified ear; Z87.891 Personal history of nicotine dependence; Z79.899 Other long term (current) drug therapy; Z79.52 Long term (current) use of systemic steroids; Z79.01 Long term (current) use of anticoagulants; Z89.422 Acquired absence of other left toe(s); Z88.0 Allergy status to penicillin
CPT/HCPCS: 36415; 71046; 74177; 80053; 85007; 85025; 85027; 87081; 94640; 94664; 94760; 96361; 96365